=== PATIENT | male | born 1965 | race Caucasian/White ===

== ENCOUNTER → 2023-11-24 | Outpatient (CLI) | payer BC ==
[2023-11-24 12:00] LABS: Basophils # (A) 0.05 X 10*3/uL (0.00-0.10); Basophils % (A) 1.3 %; Eosinophils # (A) 0.16 X 10*3/uL (0.04-0.35); Eosinophils % (A) 4.3 %; HCT 45.6 % (39.6-50.0); HGB 15.7 g/dL (13.0-17.0); Lymphocytes # (A) 1.45 X 10*3/uL (0.90-5.00); Lymphocytes % (A) 38.6 %; MCH 30.1 pg (27.0-32.0); MCHC 34.4 g/dL (32.0-37.0); MCV 87.5 FL (80.0-97.0); Monocytes # (A) 0.44 X 10*3/uL (0.20-1.00); Monocytes % (A) 11.7 %; NRBC Per 100 WBC 0 X 10*3/uL (0.00-0.01); Neutrophils # (A) 1.65 X 10*3/uL (1.80-7.70); Neutrophils % (A) 43.8 %; Platelet Count 176 X 10*3/uL (140-440); RBC 5.21 X 10*6/uL (4.40-5.60); RDW 12.8 % (11.5-14.5); WBC 3.76 X 10*3/uL (4.50-10.00)
[2023-11-24 12:26] LABS: ALT 29 U/L (10-49); AST 20 U/L (14-35); Albumin 4.6 g/dL (3.8-4.9); Albumin/Globulin Ratio 2.09 Ratio (1.60-3.17); Alkaline Phosphatase 73 U/L (41-126); Blood Urea Nitrogen 12.6 mg/dL (9.0-27.0); Calcium 9.3 mg/dL (8.7-10.3); Carbon Dioxide 24.5 mmol/L (21.6-31.8); Chloride 101 mmol/L (96-109); Globulin 2.2 g/dL (1.6-3.3); Glucose 106 mg/dL (70-110); Potassium 3.9 mmol/L (3.5-5.5); Prostate Specific Antigen 3.38 ng/mL (0.000-3.500); Sodium 137 mmol/L (135-145); T4, Free (Free Thyroxine) 1.24 ng/dL (0.80-1.80); Total Bilirubin 0.5 mg/dL (0.3-1.2); Total Protein 6.8 g/dL (6.2-8.2); VLDL Calculation 19.22 mg/dL (5.00-40.00)
[2023-11-24 13:25] LABS: Appearance,Urine Clear (Clear); Bilirubin,Urine Negative (Negative); Blood,Urine Negative (Negative); Color,Urine Yellow (Yellow); Ketones,Urine Negative (Negative); Nitrite,Urine Negative (Negative); PH, Urine 6.5; Specific Gravity,Urine 1.006 (1.001-1.030); Urobilinogen,Urine 0.2 E.U./DL
== END | disposition home or self-care (01) ==
LOC: LABWHC1 07:50
PROVIDERS: ATTEND Physician Assistant
DX: Z12.5 Encounter for screening for malignant neoplasm of prostate (principal); I10 Essential (primary) hypertension; E78.5 Hyperlipidemia, unspecified
CPT/HCPCS: 36415; 80053; 80061; 81003; 82306; 84153; 84439; 84443; 85025

== ENCOUNTER 2023-12-09 07:12 | Inpatient (IN) | payer BC ==
[2023-12-09 07:23] LABS: Glucose,Whole Blood 145 mg/dL (70-110)
[2023-12-09 07:29] LABS: Basophils # (A) 0.1 k/uL (0-0.2); Basophils % (A) 1 %; Eosinophils # (A) 0.3 k/uL (0-0.7); Eosinophils % (A) 6 %; HCT 47.9 % (39.0-53.0); HGB 16.5 gm/dL (13.0-17.5); Lymphocytes # (A) 2.2 k/uL (1.0-4.8); Lymphocytes % (A) 41 %; MCH 30.6 pg (25.0-35.0); MCHC 34.4 g/dL (31.0-37.0); MCV 88.8 fL (80.0-100.0); Mean Platelet Volume 8.6; Monocytes # (A) 0.4 k/uL (0-1.0); Monocytes % (A) 7 %; Neutrophils # (A) 2.2 k/uL (1.3-7.7); Neutrophils % (A) 41 %; Platelet Count 206 k/uL (150-450); WBC 5.3 k/uL (3.8-10.6)
--- NOTE | 2023-12-09 07:58 | CT ---
EXAMINATION TYPE: CODE STROKE: CT brain wo contr DATE OF EXAM: 12/09/2023 COMPARISON: None INDICATION: CODE STROKE DLP: 1092 mGycm, Automated exposure control for dose reduction was used. CONTRAST: None CT of the brain is performed utilizing 3 mm thick sections through the posterior fossa and 3 mm thick sections through the remaining calvarium. Study is performed within 24 hours of arrival to the hosp ital. No abnormal hyperdensity is present to suggest an acute intracranial hemorrhage. No mass lesion is evident. No acute infarcts are evident. Ventricles and sulci are appropriate for the patient age. Paranasal sinuses and mastoid air cells within the [id number] are clear. IMPRESSION: 1. No acute intracranial process. Follow-up MRI can be performed as clinically indicated.
[2023-12-09 08:06] LABS: ALT 27 U/L (4-49); AST 23 U/L (17-59); African American GFR (CKD) >90 (>60 ml/min/1.73 sqM); Albumin 3.6 g/dL (3.5-5.0); Alkaline Phosphatase 59 U/L (38-126); Anion Gap 7 mmol/L; Blood Urea Nitrogen 16 mg/dL (9-20); Calcium 8.6 mg/dL (8.4-10.2); Carbon Dioxide 23 mmol/L (22-30); Chloride 106 mmol/L (98-107); Creatine Kinase 103 U/L (55-170); Glucose 144 mg/dL (74-99); Non-African American GFR(CKD) >90 (>60 ml/min/1.73 sqM); Partial Thromboplastin Time 22.9 sec (22.0-30.0); Potassium 3.8 mmol/L (3.5-5.1); Prothrombin Time 10.9 sec (10.0-12.5); Sodium 136 mmol/L (137-145); Total Bilirubin 0.5 mg/dL (0.2-1.3); Total Protein 5.9 g/dL (6.3-8.2)
--- NOTE | 2023-12-09 08:32 | XR ---
EXAMINATION TYPE: XR chest 2V DATE OF EXAM: 12/09/2023 COMPARISON: None HISTORY: 58-year-old male confusion, altered mental status TECHNIQUE: AP and lateral views FINDINGS: Hazy lung densities likely relating to AP technique, body habitus, and overlying soft tissue density. Heart normal size. Aorta and pulmonary vasculature within normal limits. No consolidation or pleural effusion. IMPRESSION: No definite acute cardiopulmonary process.
--- NOTE | 2023-12-09 08:48 | CT ---
EXAMINATION TYPE: CT angio head neck CT DLP: 2049 mGycm, Automated exposure control for dose reduction was used. DATE OF EXAM: 12/09/2023 8:21 AM COMPARISON: CT same day.. CLINICAL INDICATION:Male, 58 years old with history of Neuro deficit, acute, stroke suspected; PHH, C ODE STROKE TECHNIQUE: Axially acquired helical CT angiogram of the head and neck was obtained with contrast. Axi al images are supplemented with 3D reconstructions and MIP images which were post-processed at an in dependent workstation. NASCET criteria used. Contrast used:65 ml mL of Isovue 370 without and with IV Contrast, Oral contrast used: None. FINDINGS: CTA HEAD: No evidence of acute intracranial hemorrhage, mass effect, or midline shift. The ventricles, sulci, a nd cisterns are unremarkable. The visualized portions of the internal carotid arteries, middle cerebral arteries, anterior cerebral arteries, and posterior cerebral arteries are patent. The basilar and vertebral arteries are patent. CTA NECK: Right Carotid System: The common carotid artery and external carotid artery are patent. The carotid bifurcation demonstrate s no evidence of hemodynamically significant stenosis. The remaining portions of the internal carotid artery demonstrate normal size without significant narrowing. Left Carotid System: The common carotid artery and external carotid artery are patent. The carotid bifurcation demonstrate s no evidence of hemodynamically significant stenosis. The remaining portions of the internal carotid artery demonstrate normal size without significant narrowing. Vertebral arteries are patent without evidence hemodynamically significant stenosis. There is a 2-vessel aortic arch. The origins of the great vessels are patent. No evidence of hemodyna mically significant stenosis. IMPRESSION: 1. No evidence of dissection of the cervical internal carotid arteries or vertebral arteries or any e vidence of significant stenosis at the carotid bifurcations. 2. No evidence of intracranial high-grade stenosis or intracranial aneurysm.
--- NOTE | 2023-12-09 09:55 | ED ---
Neuro HPI - General Chief Complaint: Neuro Symptoms/Deficit Stated Complaint: Stroke Time Seen by Provider: 12/09/23 07:20 Source: patient Mode of arrival: EMS Limitations: no limitations - History of Present Illness Is the patient presenting with stroke symptoms?: Yes Initial Comments: 58-year-old male with past medical history of hypertension who presents emergency department reporting strokelike symptoms. Patient awoke at 530 and states that he was his normal self. He did take some of his morning vitamins and started drinking coffee. At 610 he had sudden onset of a popping sensation in his left neck. He then had ataxia and was falling to the side. noted that he started having some slurred speech and altered level of consciousness. EMS was called immediately. He does not take any blood thinners. No history of stroke. Denies visual changes. No facial droop. Denies any lateralizing weakness. No recent head injuries. Denies chiropractic manipulation of the neck. No other alleviating, precipitating or modifying factors - Related Data Home Medications: Home Medications Medication Instructions Recorded Confirmed Ascorbic Acid [Vitamin C] 1,000 mg PO DAILY 12/09/23 12/15/23 Aspirin EC [Ecotrin Low Dose] 81 mg PO DAILY 12/09/23 12/15/23 Cholecalciferol (Vitamin D3) 50 mcg PO DAILY 12/09/23 12/15/23 [Vitamin D3 (50 Mcg = 2000 Iu)] amLODIPine [Norvasc] 10 mg PO DAILY 12/09/23 12/15/23 Cetirizine HCl [Zyrtec] 10 mg PO HS 12/15/23 12/15/23 Melatonin 10 mg PO HS 12/15/23 12/15/23 Previous Rx's Medication Instructions Recorded Atorvastatin [Lipitor] 40 mg PO HS #30 tab 12/11/23 Ticagrelor [Brilinta] 90 mg PO BID #60 tab 12/11/23 Allergies/Adverse Reactions: Allergies Allergy/AdvReac Type Severity Reaction Status Date / Time No Known Allergies Allergy Verified 12/15/23 13:11 Review of Systems ROS Statement: Those systems with pertinent positive or pertinent negative responses have been documented in the HPI. ROS Other: All systems not noted in ROS Statement are negative. General Exam Limitations: no limitations General appearance: alert, in no apparent distress, other (Patient does have some slurred speech) Head exam: Present: atraumatic, normocephalic, normal inspection Eye exam: Present: normal appearance, PERRL, EOMI. Absent: scleral icterus, conjunctival injection, periorbital swelling ENT exam: Present: normal exam, mucous membranes moist Neck exam: Present: normal inspection. Absent: tenderness, meningismus, lymphadenopathy Respiratory exam: Present: normal lung sounds bilaterally. Absent: respiratory distress, wheezes, rales, rhonchi, stridor Cardiovascular Exam: Present: regular rate, normal rhythm, normal heart sounds. Absent: systolic murmur, diastolic murmur, rubs, gallop, clicks GI/Abdominal exam: Present: soft, normal bowel sounds. Absent: distended, tenderness, guarding, rebound, rigid Extremities exam: Present: normal inspection, full ROM, normal capillary refill. Absent: tenderness, pedal edema, joint swelling, calf tenderness Back exam: Present: normal inspection Neurological exam: Present: alert, oriented X3, CN II-XII intact, other (Patient does appear to have some slurred speech) Psychiatric exam: Present: normal affect, normal mood Skin exam: Present: warm, dry, intact, normal color. Absent: rash Stroke MDM - Lab Data Result diagrams: 12/09/23 07:21 12/09/23 07:46 Lab Results 12/09/23 12/09/23 12/09/23 Range/Units 07:21 07:21 07:21 WBC 5.3 (3.8-10.6) k/uL RBC 5.40 (4.30-5.90) m/uL Hgb 16.5 (13.0-17.5) gm/dL Hct 47.9 (39.0-53.0) % MCV 88.8 (80.0-100.0) fL MCH 30.6 (25.0-35.0) pg MCHC 34.4 (31.0-37.0) g/dL RDW 13.0 (11.5-15.5) % Plt Count 206 (150-450) k/uL MPV 8.6 Neutrophils % 41 % Lymphocytes % 41 % Monocytes % 7 % Eosinophils % 6 % Basophils % 1 % Neutrophils # 2.2 (1.3-7.7) k/uL Lymphocytes # 2.2 (1.0-4.8) k/uL Monocytes # 0.4 (0-1.0) k/uL Eosinophils # 0.3 (0-0.7) k/uL Basophils # 0.1 (0-0.2) k/uL PT (10.0-12.5) sec INR (<1.2) APTT (22.0-30.0) sec Sodium (137-145) mmol/L Potassium (3.5-5.1) mmol/L Chloride (98-107) mmol/L Carbon Dioxide (22-30) mmol/L Anion Gap mmol/L BUN (9-20) mg/dL Creatinine (0.66-1.25) mg/dL Est GFR (CKD-EPI)AfAm (>60 ml/min/1.73 sqM) Est GFR (CKD-EPI)NonAf (>60 ml/min/1.73 sqM) Glucose (74-99) mg/dL POC Glucose (mg/dL) 145 H (70-110) mg/dL POC Glu Bean Weigher ID [address] Glu mg/dL 120 mg/dL Hemoglobin A1c 5.8 (<=6.0) % Calcium (8.4-10.2) mg/dL Total Bilirubin (0.2-1.3) mg/dL AST (17-59) U/L ALT (4-49) U/L Alkaline Phosphatase (38-126) U/L Creatine Kinase (55-170) U/L Troponin I (0.000-0.034) ng/mL Total Protein (6.3-8.2) g/dL Albumin (3.5-5.0) g/dL 12/09/23 12/09/23 12/09/23 Range/Units 07:46 07:46 07:46 WBC (3.8-10.6) k/uL RBC (4.30-5.90) m/uL Hgb (13.0-17.5) gm/dL Hct (39.0-53.0) % MCV (80.0-100.0) fL MCH (25.0-35.0) pg MCHC (31.0-37.0) g/dL RDW (11.5-15.5) % Plt Count (150-450) k/uL MPV Neutrophils % % Lymphocytes % % Monocytes % % Eosinophils % % Basophils % % Neutrophils # (1.3-7.7) k/uL Lymphocytes # (1.0-4.8) k/uL Monocytes # (0-1.0) k/uL Eosinophils # (0-0.7) k/uL Basophils # (0-0.2) k/uL PT 10.9 (10.0-12.5) sec INR 1.0 (<1.2) APTT 22.9 (22.0-30.0) sec Sodium 136 L (137-145) mmol/L Potassium 3.8 (3.5-5.1) mmol/L Chloride 106 (98-107) mmol/L Carbon Dioxide 23 (22-30) mmol/L Anion Gap 7 mmol/L BUN 16 (9-20) mg/dL Creatinine 0.76 (0.66-1.25) mg/dL Est GFR (CKD-EPI)AfAm >90 (>60 ml/min/1.73 sqM) Est GFR (CKD-EPI)NonAf >90 (>60 ml/min/1.73 sqM) Glucose 144 H (74-99) mg/dL POC Glucose (mg/dL) (70-110) mg/dL POC Glu Bean Weigher ID Estimated Ave Glu mg/dL mg/dL Hemoglobin A1c (<=6.0) % Calcium 8.6 (8.4-10.2) mg/dL Total Bilirubin 0.5 (0.2-1.3) mg/dL AST 23 (17-59) U/L ALT 27 (4-49) U/L Alkaline Phosphatase 59 (38-126) U/L Creatine Kinase 103 (55-170) U/L Troponin I <0.012 (0.000-0.034) ng/mL Total Protein 5.9 L (6.3-8.2) g/dL Albumin 3.6 (3.5-5.0) g/dL - Medical Decision Making Was pt. sent in by a medical professional or institution (, PA, COAT JOINER, urgent care, hospital, or halfway...) When possible be specific @ -No Did you speak to anyone other than the patient for history (EMS, parent, family, police, friend...)? What history was obtained from this source @ -Spoke with EMS for history Did you review nursing and triage notes (agree or disagree)? Why? @ -I reviewed and agree with nursing and triage notes Were old charts reviewed (outside hosp., previous admission, EMS record, old EKG, old radiological studies, urgent care reports/EKG's, halfway records)? Report findings @ -No old charts were reviewed Differential Diagnosis (chest pain, altered mental status, abdominal pain women, abdominal pain men, vaginal bleeding, weakness, fever, dyspnea, syncope, headache, dizziness, GI bleed, back pain, seizure, CVA, palpatations, mental health, musculoskeletal)? @ -Differential CVA Ischemic stroke, hemorrhagic stroke, brain tumor, atypical migraine, Wernicke's encephalopathy, seizure, multiple sclerosis, meningitis, encephalitis, hypoglyc emia, Guillain-Resendiz, electrolytes disturbance, myasthenia gravis.... This is not meant to be an all-inclusive list EKG interpreted by me (3pts min.). @ -Yes and demonstrates sinus bradycardia with a rate of 49. Parable 195. QRS 101. QTc of 419. No acute ST segment elevations depressions X-rays interpreted by me (1pt min.). @ -Yes and demonstrates no acute process CT interpreted by me (1pt min.). @ -Original CT was evaluated by myself pending radiology over read. CT appears negative which was agreed upon by the radiologist U/S interpreted by me (1pt. min.). @ -None done What testing was considered but not performed or refused? (CT, X-rays, U/S, labs)? Why? @ -None What meds were considered but not given or refused? Why? @ -None Did you discuss the management of the patient with other professionals (professionals i.e. , PA, COAT JOINER, lab, RT, psych nurse, social science research assistant, tax map technician, te acher, campus police officer, high risk case manager)? Give summary @ -Spoke with on-call neurointensivist. Also spoke with Dr. Almendarez in regards to the patient's symptoms.. Also spoke with admitting doctor Was smoking cessation discussed for >3mins.? @ -No Was critical care preformed (if so, how long)? @ -Yes, 40 minutes for code stroke activation Were there social determinants of health that impacted care today? How? (Homelessness, low income, unemployed, alcoholism, drug addiction, transportation, low edu. Level, literacy, decrease access to med. care, senior living, rehab)? @ -No Was there de-escalation of care discussed even if they declined (Discuss DNR or withdrawal of care, Hospice)? DNR status @ -No What co-morbidities impacted this encounter? (DM, HTN, Smoking, COPD, CAD, Cancer, CVA, ARF, Chemo, Hep., AIDS, mental health diagnosis, sleep apnea, morbid obesity)? @ -None Was patient admitted / discharged? Hospital course, mention meds given and route, prescriptions, significant lab abnormalities, going to OR and other pertinent info. @ -Upon arrival patient was seen and evaluated in room 3. Thorough history and physical exam was performed. NIH was assessed. Patient does go for CT of his brain as well as CT angiography. Chest x-ray was performed. I did discuss the results with the neurointensivist. No acute findings at this time and therefore patient will be given aspirin. He will be admitted for further neurologic workup. Patient was agreeable to this he was admitted to the floor in stable condition Undiagnosed new problem with uncertain prognosis? @ -Yes Drug Therapy requiring intensive monitoring for toxicity (Heparin, Nitro, Insulin, Cardizem)? @ -No Were any procedures done? @ -No Diagnosis/symptom? @ -Acute dysarthria, acute vertigo, suspected CVA Acute, or Chronic, or Acute on Chronic? @ -Acute Uncomplicated (without systemic symptoms) or Complicated (systemic symptoms)? @ -Complicated Side effects of treatment? @ -No Exacerbation, Progression, or Severe Exacerbation? @ -No Poses a threat to life or bodily function? How? (Chest pain, USA, MD, pneumonia, PE, COPD, DKA, ARF, appy, cholecystitis, CVA, Diverticulitis, Homicidal, Suicidal, threat to staff... and all critical care pts) @ -Yes as patient presents with symptoms concerning for stroke Past Medical History Past Medical History: Hyperlipidemia, Hypertension History of Any Multi-Drug Resistant Organisms: None Reported Additional Past Surgical History / Comment(s): sprial fracture to left femur, Past Psychological History: No Psychological Hx Reported Smoking Status: Never smoker Past Alcohol Use History: Occasional Past Drug Use History: None Reported - Past Family History Father Family Medical History: Dementia Mother History Unknown: Yes Course Vital Signs 04/12/09/23 12/09/23 07:14 07:30 07:45 Temperature 98.0 F Pulse Rate 57 L 54 L 49 L Respiratory 18 18 18 Rate Blood Pressure 210/115 165/83 175/85 O2 Sat by Pulse 98 98 98 Oximetry 12/09/23 12/09/23 12/09/23 08:00 08:15 08:30 Temperature Pulse Rate 50 L 52 L 50 L Respiratory 18 18 18 Rate Blood Pressure 173/94 170/84 170/93 O2 Sat by Pulse 96 98 98 Oximetry 12/09/23 12/09/23 12/09/23 08:45 09:00 09:30 Temperature Pulse Rate 51 L 45 L 45 L Respiratory 18 18 18 Rate Blood Pressure 169/70 170/96 169/99 O2 Sat by Pulse 97 95 94 L Oximetry 12/09/23 12/09/23 12/09/23 10:00 10:21 11:00 Temperature Pulse Rate 52 L 53 L 50 L Respiratory 18 18 18 Rate Blood Pressure 164/94 178/91 O2 Sat by Pulse 95 94 L 96 Oximetry 12/09/23 12/09/23 12/09/23 11:30 11:46 12:00 Temperature Pulse Rate 50 L 49 L 80 Respiratory 18 18 18 Rate Blood Pressure 180/92 177/90 170/87 O2 Sat by Pulse 94 L 95 94 L Oximetry 12/09/23 12/09/23 12/09/23 12:30 13:00 14:00 Temperature Pulse Rate 53 L 54 L 51 L Respiratory 18 18 16 Rate Blood Pressure 176/89 176/89 O2 Sat by Pulse 93 L 93 L 95 Oximetry 12/09/23 12/09/23 12/09/23 14:03 15:03 15:47 Temperature Pulse Rate 59 L 54 L 55 L Respiratory 18 18 18 Rate Blood Pressure 156/93 160/86 O2 Sat by Pulse 95 98 96 Oximetry 12/09/23 12/09/23 12/09/23 16:01 17:18 18:03 Temperature Pulse Rate 56 L 68 54 L Respiratory 18 18 18 Rate Blood Pressure 167/74 142/82 O2 Sat by Pulse 96 94 L 98 Oximetry 12/09/23 12/10/23 12/10/23 22:22 02:09 06:24 Temperature Pulse Rate 79 58 L 58 L Respiratory 16 16 16 Rate Blood Pressure 137/68 110/78 116/65 O2 Sat by Pulse 96 98 97 Oximetry 12/10/23 12/10/23 12/10/23 07:42 09:22 09:45 Temperature 97.4 F L Pulse Rate 66 75 Respiratory 18 18 Rate Blood Pressure 143/91 140/86 O2 Sat by Pulse 94 L 95 96 Oximetry Disposition Clinical Impression: Cerebrovascular accident (CVA), Dysarthria, Bradycardia Disposition: ADMITTED IP TO THIS [facility] Condition: Good Is patient prescribed a controlled substance at d/c from ED?: No Time of Disposition: 09:54 Decision to Admit Reason: Admit from EC Decision Date: 12/09/23 Decision Time: 09:55
[2023-12-09] MEDS: ATORVASTATIN 40 MG TAB PO SCH (10:20)
[2023-12-09] MEDS: MECLIZINE 12.5 MG TAB PO STA (10:20)
--- NOTE | 2023-12-09 11:15 | P.HPIM ---
History of Present Illness H&P Date: 12/09/23 History of Presenting Illness: Patient is a very pleasant 58-year-old male with a past medical history of hypertension and hyperlipidemia. He presented to the emergency department with reports of slurred speech, dizziness, and unsteady gait. Patient and patient's at bedside report patient awoke around 5:30 AM this morning at his baseline mentation. Around 6:10 AM he felt a sudden pop in his left ear accompanied by significant dizziness/lightheadedness. Patient reports calling for his and she states she assisted him to go lie down but states he kept falling and leaning towards the left. She reports once she assisted him to lie down he began having slurred speech and seemed quite off so she called EMS. Patient denies having headache, changes in vision or hearing, chest pain or palpitations, shortness of breath, or experiencing any focal weakness in his extremities. Patient does report feeling some numbness/tingling in his right shoulder, persistent slurred speech and dizziness but also states since arrival to the hospital he noticed he had some difficulty swallowing the aspirin he was given. He underwent evaluation in the emergency department and a stroke code was activated. Vital signs upon arrival show blood pressure 210/115, heart rate 57, respiratory rate 18, temp 98.0 F, and SpO2 of 98% on room air. Blood glucose was 145. EKG was completed showing sinus bradycardia at 49 bpm with no significant T wave or ST abnormalities showing no signs of acute ischemia. CT head was negative for acute intracranial process. CTA head and neck showing no evidence of dissection of the cervical internal carotid arteries or vertebral arteries or any evidence of stenosis at the carotid bifurcations. Initial NIH score was 1 for dysarthria and ataxia.. Emergency physician discussed with neuro interventionalist and patient was considered not a candidate for tPA due to low NIH score. Labs were completed and reviewed. CBC, coagulation profile and CMP were unremarkable. Troponin was less than 0.012. Patient was admitted under our services with consultation to neurology. Review of systems: Pertinent positives and negatives as discussed in HPI, a complete review of systems was performed and all other systems are negative. Physical exam: Vital signs reviewed and stable. General: Nontoxic, no distress and appears stated age. Derm: Skin warm and dry, normal coloration for ethnicity. Head: Atraumatic, normocephalic and symmetric. Eyes: EOMs intact, no lid lag, and anicteric sclera Mouth: no lip lesions, mucus membranes moist Cardiovascular: regular rate and rhythm with normal S1S2, systolic murmur, positive posterior tibial pulses bilaterally, and cap refill < 2 seconds. Lungs: Respirations even, regular, and unlabored on room air. Lungs CTA bilaterally, no rhonchi, no rales, no wheezing, and no accessory muscle usage. Abdominal: soft, nontender to palpation, no guarding, no appreciable organomegaly Ext: No gross muscle atrophy, no edema, no contractures. Station intact and movement equal, strong, and symmetrical in bilateral upper and lower extremities. Neuro: Speech slightly slurred, face symmetrical and CN II-XII grossly intact with no noted focal neuro deficits. Normal [id number]. No arm drop. Normal [id number]. Psych: Alert and oriented to person, place, time, and situation. Appropriate and pleasant affect. Assessment and Plan of Care: Concerns of acute ischemic stroke Neurological deficits including dysphagia, aphasia, and ataxia accompanied by persistent dizziness Hypertension Hyperlipidemia -Consult neurology, appreciate recommendations -Order placed for MRI brain without contrast -Order placed for echocardiogram -TSH, Lipid profile, and Hgb A1c -NIH stroke scale with neuro checks every 4 hours and as needed -Continue daily aspirin and atorvastatin. -Resume amlodipine 10 mg daily tomorrow a.m, as we will allow for permissive hypertension over next 24 hours. -PT/OT consult -Speech and language pathologist consulted for swallow evaluation. -Fall precautions and provide pt with assistance as needed Data and imaging reviewed: As stated above in HPI The patient is admitted with an anticipated greater than 2 midnight stay for evaluation of acute ischemic CVA CODE STATUS: Full code DVT prophylaxis: SCDs Discussed with: Patient, patient's , and ED physician. Anticipated discharge date: Likely 2 to [address]: Home Patient was seen independently by Nurse Practitioner. This document was prepared using [employer] dictation software. Please allow for errors in national van truck driver while rare they do occur. Vlad Alfonso NP rendered care for this patient independently, reviewed the f indings and plan as documented in the note above. I did not physically speak with or examine the patient on this date. Past Medical History Past Medical History: Hyperlipidemia, Hypertension History of Any Multi-Drug Resistant Organisms: None Reported Additional Past Surgical History / Comment(s): sprial fracture to left femur, Past Psychological History: No Psychological Hx Reported Smoking Status: Never smoker Past Alcohol Use History: Occasional Past Drug Use History: None Reported Medications and Allergies Home Medications Medication Instructions Recorded Confirmed Type Arginine Oxoglurate [l-Arginine] 350 mg PO DAILY 12/09/23 12/09/23 History Ascorbic Acid [Vitamin C] 1,000 mg PO DAILY 12/09/23 12/09/23 History Aspirin EC [Ecotrin Low Dose] 81 mg PO DAILY 12/09/23 12/09/23 History Atorvastatin [Lipitor] 20 mg PO MOWEFR@2100 12/09/23 12/09/23 History Cholecalciferol (Vitamin D3) 50 mcg PO DAILY 12/09/23 12/09/23 History [Vitamin D3 (50 Mcg = 2000 Iu)] Red Yeast Rice 600 mg PO DAILY 12/09/23 12/09/23 History Turmeric Root Extract [Turmeric] 500 mg PO DAILY 12/09/23 12/09/23 History amLODIPine [Norvasc] 10 mg PO DAILY@1200 12/09/23 12/09/23 History Allergies Allergy/AdvReac Type Severity Reaction Status Date / Time No Known Allergies Allergy Verified 12/09/23 09:52 Physical Exam Vitals: Vital Signs Temp Pulse Resp BP Pulse Ox 12/09/23 10:21 53 L 18 178/91 94 L 12/09/23 10:00 52 L 18 164/94 95 12/09/23 09:30 45 L 18 169/99 94 L 12/09/23 09:00 45 L 18 170/96 95 12/09/23 08:45 51 L 18 169/70 97 12/09/23 08:30 50 L 18 170/93 98 12/09/23 08:15 52 L 18 170/84 98 12/09/23 08:00 50 L 18 173/94 96 12/09/23 07:45 49 L 18 175/85 98 12/09/23 07:30 54 L 18 165/83 98 12/09/23 07:14 98.0 F 57 L 18 210/115 98 Intake and Output 12/08/23 12/09/23 12/09/23 22:59 06:59 14:59 Other: Weight 102.784 kg Results CBC & Chem 7: 12/09/23 07:21 12/09/23 07:46 Labs: Abnormal Lab Results - Last 24 Hours (Table) 12/09/23 12/09/23 Range/Units 07:21 07:46 Sodium 136 L (137-145) mmol/L Glucose 144 H (74-99) mg/dL POC Glucose (mg/dL) 145 H (70-110) mg/dL Total Protein 5.9 L (6.3-8.2) g/dL
[2023-12-09] MEDS: TICAGRELOR 90 MG TAB PO STA (15:00)
[2023-12-09] MEDS: ASPIRIN 81 MG PO STA (15:00)
[2023-12-09] MEDS: PROCHLORPERAZINE INJ 10 MG/2 ML VIAL IVP PRN (15:54)
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
--- NOTE | 2023-12-09 16:51 | CA ---
Transthoracic Echo Report Name: William Laguerre Age: 58 Gender: M : 1965 Exam Date: 12/09/2023 14:35 Exam Location: [facility] Ht (in): 72 Wt (lb): 226 Ordering Physician: Vlad Alfonso Attending/Referring Phys: Silk Examiner Felicita Crowder RDCS Procedure CPT: Indications: CVA workup Cardiac Hx: Technical Quality: Fair Contrast 1: Total Dose (mL): Contrast 2: Total Dose (mL): MEASUREMENTS (Male / Female) Normal Values 2D ECHO LV Diastolic Diameter PLAX 4.3 cm 4.2 - 5.9 / 3.9 - 5.3 cm LV Systolic Diameter PLAX 2.8 cm IVS Diastolic Thickness 1.4 cm 0.6 - 1.0 / 0.6 - 0.9 cm LVPW Diastolic Thickness 1.3 cm 0.6 - 1.0 / 0.6 - 0.9 cm LV Relative Wall Thickness 0.6 RV Internal Dim ED PLAX 3.5 cm LA Systolic Diameter LX 3.3 cm 3.0 - 4.0 / 2.7 - 3.8 cm LV Diastolic Volume MOD 4C 150.0 cm??? LV Systolic Volume MOD 4C 57.1 cm??? LV Ejection Fraction MOD 4C 61.9 % LV Cardiac Index MOD 4C 2013.9 cm???/min???m??? LV Diastolic Length 4C 9.8 cm LV Systolic Length 4C 7.7 cm LV Diastolic Volume MOD 2C 101.2 cm??? LV Systolic Volume MOD 2C 43.9 cm??? LV Ejection Fraction MOD 2C 56.6 % LV Cardiac Index MOD 2C 1241.8 cm???/min???m??? LV Diastolic Length 2C 9.3 cm LV Systolic Length 2C 7.3 cm LA Volume 64.4 cm??? 18 - 58 / 22 - 52 cm??? LA Volume Index 27.9 cm???/m??? 16 - 28 cm???/m??? M-MODE Aortic Root Diameter MM 4.1 cm MV E Point Septal Separation 0.3 cm AV Cusp Separation MM 2.7 cm DOPPLER AV Peak Velocity 206.9 cm/s AV Peak Gradient 17.1 mmHg AI Peak Velocity 356.6 cm/s AI Peak Gradient 50.9 mmHg AI Pressure Half Time 1052.6 ms LVOT Peak Velocity 177.2 cm/s LVOT Peak Gradient 12.6 mmHg MV Area PHT 3.0 cm??? Mitral E Point Velocity 86.5 cm/s Mitral A Point Velocity 94.0 cm/s Mitral E to A Ratio 0.9 MV Deceleration Time 249.4 ms TR Peak Velocity 272.4 cm/s TR Peak Gradient 29.7 mmHg Right Ventricular Systolic Press 34.7 mmHg FINDINGS Left Ventricle Left ventricular ejection fraction is estimated at 55-60 %. Left ventricular cavity size normal. Moderately increased septal wall thickness. No obvious regional wall motion abnormalities. Right Ventricle Mild right ventricular dilatation. Mild pulmonary hypertension. Right Atrium Normal right atrial size. Left Atrium Mildly increased left atrial volume. Mildly increased left atrial area. Mitral Valve Structurally normal mitral valve. No mitral stenosis, regurgitation or prolapse. Aortic Valve Trileaflet aortic valve. Trace aortic regurgitation. Tricuspid Valve Structurally normal tricuspid valve. Mild tricuspid regurgitation. Pulmonic Valve Structurally normal pulmonic valve. Trace pulmonic regurgitation. Pericardium No pericardial effusion. Aorta Mild aortic dilatation at the level of the sinuses of valsalva 40 mm CONCLUSIONS Normal LV function Mildly dilated aortic root Mild pulmonary hypertension Consider transesophageal echo if clinically indicated to rule out cardiac source for thromboembolic phenomenon Previewed by: Dr. Frankie Palencia MD (Electronically Signed) Final Date: 09 December 2023 16:50
--- NOTE | 2023-12-09 17:02 | MR ---
EXAMINATION TYPE: MR brain wo con DATE OF EXAM: 12/09/2023 COMPARISON: CT 12/09/2023 HISTORY: CVA CONTRAST: Performed utilizing 0 mL intravenous Gadavist gadolinium contrast. TECHNIQUE: Multiplanar, multiecho imaging on a 3.0 Jolie magnet is performed through the brain. Stud y is performed within 24 hours of arrival to the hospital. The craniovertebral junction is normal. The pituitary is normal. Diffusion-weighted imaging is performed. No abnormal hyperintensity is present to suggest an acute i ntracranial infarct or acute ischemic change. Signal within the brain appears normal. Ventricles and sulci are appropriate for the patient age. No hydrocephalus is evident. No temporal ho rn dilatation is evident. Note is made of fluid surrounding the optic nerves. No suspicious changes for acute intracranial incr eased pressure. Recommend physical evaluation for papilledema. IMPRESSION: 1. There appears to be some fluid surrounding the optic nerves bilaterally. Finding has been associat ed with papilledema. Clinical correlation recommended with physical exam.
--- NOTE | 2023-12-09 17:42 | MR ---
EXAMINATION TYPE: MR angio head wo/neck wo/w con DATE OF EXAM: 12/09/2023 COMPARISON: CTA 12/09/2023 HISTORY: Possible left vertebral artery dissection CONTRAST: None TECHNIQUE: Multiplanar multiecho imaging on a 3.0 Jolie magnet is performed through the [place] [facility]. 3-D orur-xk-gxqqga imaging is performed. Source images are reviewed on the computer in the axi al plane. Reconstructed images rotating on the computer are reviewed. FINDINGS: The internal carotid arteries bifurcate normally into A1 and M1 segments. The A2 segments are normal. Middle cerebral artery branches are normal. Anterior communicating artery is patent. The right posterior communicating artery is patent. The left posterior communicating artery is patent. Vertebrobasilar arteries within the truuj-kn-vaxi are normal. Near their origins the right vertebral artery is slightly larger caliber than the left vertebral artery. The caliber of the left vertebral a rtery as it enters the skull base is smaller than the right. There may be a section of vertebral rolando ry not visualized left. Some retrograde flow cannot be excluded basilar artery. Reports: Case discuss ed with the neurologist Dr. Almendarez by Dr. Adams by telephone at time of interpretation 1734 hours . Posterior Cerebral vasculature is normal. No suspicious aneurysm or aneurysmal dilatation is evident . No obstructions are identified. No significant flow-limiting stenosis is evident. IMPRESSION: 1. Portion of the left vertebral artery from the foramen magnum to the basilar artery is incompletely visualized. Thrombus is not excluded. Discrete dissection not identified.
[2023-12-09] MEDS: TICAGRELOR 90 MG TAB PO SCH (20:54)
[2023-12-10] MEDS: ASCORBIC ACID 500 MG TAB PO SCH (08:18)
[2023-12-10] MEDS: ASPIRIN 81 MG PO SCH (08:18)
[2023-12-10] MEDS: CHOLECALCIFEROL 25 MCG (1000 IU) TABLET PO SCH (08:19)
[2023-12-10] MEDS ORDERED: ASPIRIN 325 MG TAB PO SCH (09:00)
--- NOTE | 2023-12-10 14:59 | P.PN ---
Subjective Progress Note Date: 12/10/23 Hospital Course: Patient is a very pleasant 58-year-old male with a past medical history of hypertension and hyperlipidemia. He presented to the emergency department with reports of slurred speech, dizziness, and unsteady gait. Patient and patient's at bedside report patient awoke around 5:30 AM this morning at his baseline mentation. Around 6:10 AM he felt a sudden pop in his left ear accompanied by significant dizziness/lightheadedness. Patient reports calling for his and she states she assisted him to go lie down but states he kept falling and leaning towards the left. She reports once she assisted him to lie down he began having slurred speech and seemed quite off so she called EMS. Patient denies having headache, changes in vision or hearing, chest pain or palpitations, shortness of breath, or experiencing any focal weakness in his extremities. Patient does report feeling some numbness/tingling in his right shoulder, persistent slurred speech and dizziness but also states since arrival to the hospital he noticed he had some difficulty swallowing the aspirin he was given. He underwent evaluation in the emergency department and a stroke code was activated. Vital signs upon arrival show blood pressure 210/115, heart rate 57, respiratory rate 18, temp 98.0 F, and SpO2 of 98% on room air. Blood glucose was 145. EKG was completed showing sinus bradycardia at 49 bpm with no significant T wave or ST abnormalities showing no signs of acute ischemia. CT head was negative for acute intracranial process. CTA head and neck showing no evidence of dissection of the cervical internal carotid arteries or vertebral arteries or any evidence of stenosis at the carotid bifurcations. Initial NIH score was 1 for dysarthria and ataxia.. Emergency physician discussed with neuro interventionalist and patient was considered not a candidate for tPA due to low NIH score. Labs were completed and reviewed. CBC, coagulation profile and CMP were unremarkable. Troponin was less than 0.012. Patient was admitted under our services with consultation to neurology. MRI brain without contrast reporting some fluid surrounding the optic nerves bilaterally appears to be associated with palpable edema. MRA head and neck showing portion of the left vertebral artery from the faustin magnum to the basilar artery is incompletely visualized, concerning for thrombus however discrete dissection was not identified. Discussed these findings with neurologist, patient was started on Brilinta in addition to daily aspirin. Echocardiogram revealing a preserved EF of 55 to 60% with a mildly dilated aortic root and mild pulmonary hypertension. Physical exam: Patient seen and fully evaluated at bedside this morning. He has had full resolution of previous reported symptoms including dizziness, dysphagia, aphasia, and right shoulder/arm numbness and tingling. He continues to deny having any headache, changes in vision or hearing, chest pain, palpitations, or any other complaints at this time. Patient and patient's at bedside were updated on MRI results and current plan of care. Vital signs reviewed and stable. General: Nontoxic, no distress and appears stated age. Derm: Skin warm and dry, normal coloration for ethnicity. Head: Atraumatic, normocephalic and symmetric. Eyes: EOMs intact, no lid lag, and anicteric sclera Mouth: no lip lesions, mucus membranes moist Cardiovascular: regular rate and rhythm with normal S1S2, systolic murmur, positive posterior tibial pulses bilaterally, and cap refill < 2 seconds. Lungs: Respirations even, regular, and unlabored on room air. Lungs CTA bilaterally, no rhonchi, no rales, no wheezing, and no accessory muscle usage. Abdominal: soft, nontender to palpation, no guarding, no appreciable organomegaly Ext: No gross muscle atrophy, no edema, no contractures. Station intact and movement equal, strong, and symmetrical in bilateral upper and lower extremities. Neuro: Speech clear, face symmetrical and CN II-XII grossly intact with no noted focal neuro deficits. Normal ipfm-mc-psbj. No arm drop. Normal gkzmis-ge-syaw. Psych: Alert and oriented to person, place, time, and situation. Appropriate and pleasant affect. Assessment and Plan of Care: Acute ischemic stroke Neurological deficits including dysphagia, aphasia, and ataxia accompanied by persistent dizziness Hypertension Hyperlipidemia -Consult neurology, appreciate recommendations -MRI brain without contrast reporting some fluid surrounding the optic nerves bilaterally appears to be associated with palpable edema. -MRA head and neck showing portion of the left vertebral artery from the faustin magnum to the basilar artery is incompletely visualized, concerning for thrombus however discrete dissection was not identified. -Echocardiogram revealing a preserved EF of 55 to 60% with a mildly dilated aortic root and mild pulmonary hypertension -TSH, Lipid profile, and Hgb A1c -NIH stroke scale with neuro checks every 4 hours and as needed -Continue daily aspirin and atorvastatin. -Resume amlodipine 10 mg daily, as this was held yesterday allowing for permissive hypertension for initial 24 hours. -PT/OT consult -Speech and language pathologist consulted for swallow evaluation. -Fall precautions and provide pt with assistance as needed Data and imaging reviewed: -MRI brain without contrast reporting some fluid surrounding the optic nerves bilaterally appears to be associated with palpable edema. -MRA head and neck showing portion of the left vertebral artery from the faustin magnum to the basilar artery is incompletely visualized, concerning for thrombus however discrete dissection was not identified. -Echocardiogram revealing a preserved EF of 55 to 60% with a mildly dilated aortic root and mild pulmonary hypertension -Vital signs reviewed. Blood pressure 143/91, heart rate 66, respiratory rate 18, and SpO2 of 94% on room air. CODE STATUS: Full code DVT prophylaxis: SCDs Anticipated discharge date: Clinical course to determine Anticipated discharge place: Home Patient was seen independently by Nurse Practitioner. This document was prepared using [employer] dictation software. Please allow for e rrors in site manager while rare they do occur. I reviewed the documentation as provided by the BRIDGET above, who is the original author of this note. I agree with the documented assessment and plan, with the following changes: none Objective - Vital Signs Vital signs: Vital Signs Temp 98.0 F 12/09/23 07:14 Pulse 66 12/10/23 07:42 Resp 18 12/10/23 07:42 BP 143/91 12/10/23 07:42 Pulse Ox 94 L 12/10/23 07:42 FiO2 Intake & Output 12/09/23 12/10/23 12/10/23 18:59 06:59 18:59 Weight 102.784 kg - Labs CBC & Chem 7: 12/09/23 07:21 12/09/23 07:46 Labs: Abnormal Lab Results - Last 24 Hours (Table) 12/09/23 Range/Units 07:46 Sodium 136 L (137-145) mmol/L Glucose 144 H (74-99) mg/dL Total Protein 5.9 L (6.3-8.2) g/dL
[2023-12-10 16:02] LABS: LDL Cholesterol,Calculated 136.1 mg/dL (0.0-131.0); VLDL Calculation 18.94 mg/dL (5.00-40.00)
[2023-12-10] MEDS: amLODIPine 10 MG TAB PO SCH ×2 (16:32→20:11)
--- NOTE | 2023-12-10 16:43 | P.PN ---
Subjective Progress Note Date: 12/10/23 Patient was seen for a follow-up. Patient's was also present. Patient has no headache. He is walking well, walked around the hallway. Denies any numbness or tingling, difficulty swallowing or speaking or balance issues. All symptoms have resolved. Patient states that since he returned back from MRI, he has not had any further focal symptoms or TIA. Objective - Vital Signs Vital signs: Vital Signs Temp 98.0 F 12/10/23 10:20 Pulse 53 L 12/10/23 14:00 Resp 16 12/10/23 12:00 BP 151/81 12/10/23 12:00 Pulse Ox 95 12/10/23 12:00 FiO2 Intake & Output 12/09/23 12/10/23 12/10/23 18:59 06:59 18:59 Intake Total 360 Balance 360 Weight 102.784 kg 102.784 kg Intake: Oral 360 Other: # Voids 1 - Exam Patient is a middle aged male, in no acute distress. Patient is alert awake oriented to time place and person. Speech and language functions are normal. Patient can name and repeat very well. No aphasia or dysarthria. Attention, concentration and fund of knowledge is adequate. On cranial nerve examination, pupils are equal, round and reacting to light, visual hall are full on confrontation, with no neglect on double simultaneous stimulation. Extraocular muscles are intact with no nystagmus. Face is symme tric, tongue protrudes to the midline. Palatal elevation and sensation normal, hearing and shoulder shrug normal, facial sensation normal. On muscle strength testing, there is no pronator drift and the strength is normal in arms and legs distally and proximally. Sensory to touch is equal with no neglect on double simultaneous stimulation. Cerebellar function showed no ataxia for [id number] testing. No dysdiadochokinesia. No ataxia for [id number] testing on either side. Tone and bulk of muscles normal. Gait deferred.. On general examination, there is no carotid bruit or murmur, S1-S2 audible. Chest is clear on consultation. Abdomen is soft nontender. No organomegaly, bowel sounds present. Peripheral pulses are present. No peripheral edema. - Labs CBC & Chem 7: 12/09/23 07:21 12/09/23 07:46 Assessment and Plan Assessment: * Recurrent TIA, probably in the left PICA distribution. 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 Patient probably had recurrent TIA. Current NIH stroke scale is 0. MRI of the brain reported as appears to be some fluid surrounding the optic nerves bilaterally. Findings has been associated with papilledema. Clinical correlation recommended with physical exam. I personally reviewed MRI, and there is no evidence of any acute stroke. The brainstem and the medulla appears clear. MRA of the head and neck revealed portion of the left vertebral artery from the foramen magnum to the basilar artery is incompletely visualized. Thrombus is not excluded. Discrete dissection not identified. 2-D echo revealed left ventricular EF 55 to 60%. Moderately increased septal wall thickness. No obvious regional wall motion abnormalities. Mildly increased left atrial volume. Mild aortic dilation at the level of the sinuses. No obvious valvular abnormalities. CTA of head and neck showed no evidence of dissection of the cervical internal carotid arteries or vertebral arteries or any evidence of significant stenosis at the carotid bifurcations. No evidence of intracranial high-grade stenosis or intracranial aneurysm. On my review there is evidence of possible left vertebral artery occlusion at the skull base. I had reviewed with the radiologist, who agreed and put an addendum. Fasting a.m. lipid panel with cholesterol 198, LDL 136, HDL 43, triglycerides 94. Patient was taking Lipitor 20 mg 3 times a week. Agree with increasing Lipitor to 40 mg daily. If he cannot tolerate Lipitor, then he can follow-up with primary physician to try alternate medication. Hemoglobin A1c 5.8. Patient has been free of TIA for last 24-hour. May start gradually controlling blood pressure with low-dose amlodipine. Patient was taking aspirin 81 mg daily at home. Brilinta has been started. Recommend continue aspirin 81 mg and Brilinta 90 mg twice daily for 30 days. If remains stable, then may move to aspirin and Plavix. Neuro checks every 2 hour. Telemetry monitoring rule out any arrhythmia PT, OT, speech therapy DVT prophylaxis: Patient ambulatory. Recommend follow-up with neurologist outpatient in 2 to 3 weeks. Because the patient's symptoms have resolved, he has reset the clock for thrombolysis. If he gets any further significant neurological deficits that persist, he could be a potential candidate for TNK. Informed the patient's nurse, as well as primary team. Continue neurochecks every 1 hour.
[2023-12-11 08:29] VITALS: BP 160/94; PULSE 67; RESP 17; TEMP 97.8
[2023-12-11] MEDS: ACETAMINOPHEN TAB 325 MG TAB PO PRN (09:48)
--- NOTE | 2023-12-11 10:14 | P.DS ---
Providers Date of admission: 12/09/23 09:57 Expected date of discharge: 12/11/23 Attending physician: Sree Conroy MD Consults: 12/09/23 09:56 Consult Physician Urgent Consulting Provider: Swati Almendarez Consult Reason/Comments: Acute ataxia, acute dysarthria, suspected CVA Do you want consulting provider notified?: Yes Primary care physician: Fuentes Rey [facility] Course: Assessment: High risk TIA Neurological deficits including dysphagia, aphasia, and ataxia accompanied by persistent dizziness Hypertension Hyperlipidemia Hospital Course: Patient is a very pleasant 58-year-old male with a past medical history of hypertension and hyperlipidemia. He presented to the emergency department with reports of slurred speech, dizziness, and unsteady gait. Patient and patient's at bedside report patient awoke around 5:30 AM this morning at his baseline mentation. Around 6:10 AM he felt a sudden pop in his left ear accompanied by significant dizziness/lightheadedness. Patient reports calling for his and she states she assisted him to go lie down but states he kept falling and leaning towards the left. She reports once she assisted him to lie down he began having slurred speech and seemed quite off so she called EMS. Patient denies having headache, changes in vision or hearing, chest pain or palpitations, shortness of breath, or experiencing any focal weakness in his extremities. Patient does report feeling some numbness/tingling in his right shoulder, persistent slurred speech and dizziness but also states since arrival to the hospital he noticed he had some difficulty swallowing the aspirin he was given. He underwent evaluation in the emergency department and a stroke code was activated. Vital signs upon arrival show blood pressure 210/115, heart rate 57, respiratory rate 18, temp 98.0 F, and SpO2 of 98% on room air. Blood glucose was 145. EKG was completed showing sinus bradycardia at 49 bpm with no significant T wave or ST abnormalities showing no signs of acute ischemia. CT head was negative for acute intracranial process. CTA head and neck showing no evidence of dissection of the cervical internal carotid arteries or vertebral arteries or any evidence of stenosis at the carotid bifurcations. Initial NIH score was 1 for dysarthria and ataxia.. Emergency physician discussed with neuro interventionalist and patient was considered not a candidate for tPA due to low NIH score. Labs were completed and reviewed. CBC, coagulation profile and CMP were unremarkable. Troponin was less than 0.012. Patient was admitted under our services with consultation to neurology. MRI brain without contrast r eporting some fluid surrounding the optic nerves bilaterally appears to be associated with palpable edema. MRA head and neck showing portion of the left vertebral artery from the faustin magnum to the basilar artery is incompletely visualized, concerning for thrombus however discrete dissection was not identified. Discussed these findings with neurologist, patient was started on Brilinta in addition to daily aspirin. Echocardiogram revealing a preserved EF of 55 to 60% with a mildly dilated aortic root and mild pulmonary hypertension. Patient's symptoms did completely resolve within 24 hours, and therefore was deemed to have had a high risk TIA. He was prescribed aspirin/Brilinta on discharge. His atorvastatin was increased from 10 mg every other day to 40 mg at bedtime. DAVEY was considered but deferred given completely normal echo. He has follow-up arranged with primary care physician as well as neurologist. He was given a 30-day event monitor on discharge. I spent 38 minutes coordinating this discharge on 12/10 Physical exam: Gen: In NAD, non-toxic HEENT: normocephalic, atraumatic, hearing acuity is intant, mucous membranes moist CVS: perfusing all extremities well, no pitting edema, Respiratory: symmetric chest expansion, no accessory muscle use, GI: soft, NTTP, ND, : no suprapubic tenderness, no CVA tenderness MSK/Derm: no rashes, cyanosis Neuro: CN II-XII intact, no motor weakness, Psych: cooperative, euthymic mood, judgment and insight is intact Patient Condition at Discharge: Good Plan - Discharge Summary Discharge Rx Participant: Yes New Discharge Prescriptions: New Ticagrelor [Brilinta] 90 mg PO BID #60 tab Atorvastatin [Lipitor] 40 mg PO HS #30 tab Continue amLODIPine [Norvasc] 10 mg PO DAILY@1200 Aspirin EC [Ecotrin Low Dose] 81 mg PO DAILY Ascorbic Acid [Vitamin C] 1,000 mg PO DAILY Cholecalciferol (Vitamin D3) [Vitamin D3 (50 Mcg = 2000 Iu)] 50 mcg PO DAILY Discontinued Red Yeast Rice 600 mg PO DAILY Turmeric Root Extract [Turmeric] 500 mg PO DAILY Arginine Oxoglurate [l-Arginine] 350 mg PO DAILY Atorvastatin [Lipitor] 20 mg PO MOWEFR@2100 Discharge Medication List Ascorbic Acid [Vitamin C] 1,000 mg PO DAILY 12/09/23 [History] Aspirin EC [Ecotrin Low Dose] 81 mg PO DAILY 12/09/23 [History] Cholecalciferol (Vitamin D3) [Vitamin D3 (50 Mcg = 2000 Iu)] 50 mcg PO DAILY 12/09/23 [History] amLODIPine [Norvasc] 10 mg PO DAILY@1200 12/09/23 [History] Atorvastatin [Lipitor] 40 mg PO HS #30 tab 12/11/23 [Rx] Ticagrelor [Brilinta] 90 mg PO BID #60 tab 12/11/23 [Rx] Follow up Appointment(s)/Referral(s): Fuentes Ruby MD [Primary Care Provider] - 1-2 days Larissa Pandey MD [STAFF PHYSICIAN] - 1 Week Discharge Disposition: HOME SELF-CARE
== END 2023-12-11 12:51 | disposition home or self-care (01) | DRG 66 ==
LOC: EC 07:12 → 3SCARD 09:57
PROVIDERS: ADMIT Student in an Organized Health Care Education/Training Program; ATTEND Student in an Organized Health Care Education/Training Program
DX: I63.89 Other cerebral infarction (principal); I10 Essential (primary) hypertension; I27.20 Pulmonary hypertension, unspecified; I65.02 Occlusion and stenosis of left vertebral artery; R13.10 Dysphagia, unspecified; E78.5 Hyperlipidemia, unspecified; R29.701 NIHSS score 1; R47.01 Aphasia; R47.81 Slurred speech; Z79.82 Long term (current) use of aspirin; Z79.899 Other long term (current) drug therapy
CPT/HCPCS: 36415; 70450; 70496; 70498; 70544; 70549; 70551; 71046; 80053; 80061; 82550; 83036; 84443; 84484; 85025; 85610; 85730; 93005; 93270; 93306; 96374; 99291

== ENCOUNTER 2023-12-15 12:55 | Inpatient (IN) | payer BC ==
--- NOTE | 2023-12-15 14:13 | ED ---
General Adult HPI - General Chief complaint: Neuro Symptoms/Deficit Stated complaint: TIA Time Seen by Provider: 12/15/23 13:10 Source: patient, EMS, RN notes reviewed, old records reviewed Mode of arrival: EMS Limitations: no limitations - History of Present Illness Initial comments: Is a 58-year-old male who presents to the emergency department and was in a week ago with strokelike symptoms and patient had a CT CTA and a MRI and it showed 100% occlusion of the right vertebral artery. Patient states he was having headache this morning and it eventually subsided. Patient states about noon he started having some tingling sensation left side of his body he did not lose sensation but it did not feel normal. Patient also states it felt more diffi cult to swallow which is improved since earlier but is not completely resolved. Patient is having no problem handling his saliva. Patient denies any arm or leg weakness or numbness. Patient denies any visual disturbance. Patient denies any slurred speech or facial droop. - Related Data Home Medications Medication Instructions Recorded Confirmed Ascorbic Acid [Vitamin C] 1,000 mg PO DAILY 12/09/23 12/15/23 Aspirin EC [Ecotrin Low Dose] 81 mg PO DAILY 12/09/23 12/15/23 Cholecalciferol (Vitamin D3) 50 mcg PO DAILY 12/09/23 12/15/23 [Vitamin D3 (50 Mcg = 2000 Iu)] amLODIPine [Norvasc] 10 mg PO HS 12/09/23 12/15/23 Cetirizine HCl [Zyrtec] 10 mg PO HS 12/15/23 12/15/23 Melatonin 10 mg PO HS 12/15/23 12/15/23 Previous Rx's Medication Instructions Recorded Atorvastatin [Lipitor] 40 mg PO HS #30 tab 12/11/23 Ticagrelor [Brilinta] 90 mg PO BID #60 tab 12/11/23 Allergies Allergy/AdvReac Type Severity Reaction Status Date / Time No Known Allergies Allergy Verified 12/15/23 13:11 Review of Systems ROS Statement: Those systems with pertinent positive or pertinent negative responses have been documented in the HPI. ROS Other: All systems not noted in ROS Statement are negative. Past Medical History Past Medical History: Hyperlipidemia, Hypertension History of Any Multi-Drug Resistant Organisms: None Reported Additional Past Surgical History / Comment(s): sprial fracture to left femur, Past Psychological History: No Psychological Hx Reported Smoking Status: Never smoker Past Alcohol Use History: Occasional Past Drug Use History: None Reported - Past Family History Father Family Medical History: Dementia Mother History Unknown: Yes General Exam - General Exam Comments Initial Comments: GENERAL: Patient is well-developed and well-nourished. Patient is nontoxic and well- hydrated and is in no acute distress. ENT: Neck is soft and supple. No significant lymphadenopathy is noted. Oropharynx is clear. Moist mucous membranes. Neck has full range of motion without eliciting any pain. EYES: The sclera were anicteric and conjunctiva were pink and moist. Extraocular movements were intact and pupils were equal round and reactive to light. Eyelids were unremarkable. PULMONARY: Unlabored respirations. Good breath sounds bilaterally. No audible rales rhonchi or wheezing was noted. CARDIOVASCULAR: There is a regular rate and rhythm without any murmurs gallops or rubs. ABDOMEN: Soft and nontender with normal bowel sounds. SKIN: Skin is clear with no lesions or rashes and otherwise unremarkable. NEUROLOGIC: Patient is alert and oriented x3. Cranial nerves II through XII are grossly intact. Motor and sensory are also intact. Normal speech, volume and content. Symmetrical smile. NIH is 0 MUSCULOSKELETAL: Normal extremities with adequate strength and full range of motion. LYMPHATICS: No significant lymphadenopathy is noted PSYCHIATRIC: Normal psychiatric evaluation. Limitations: no limitations Course Vital Signs 12/15/23 12/15/23 12/15/23 13:08 14:00 17:05 Temperature 98 F Pulse Rate 68 63 67 Respiratory 18 18 Rate Blood Pressure 204/95 199/100 172/93 O2 Sat by Pulse 98 96 97 Oximetry Medical Decision Making - Medical Decision Making Was pt. sent in by a medical professional or institution (, PA, [employer], urgent care, hospital, or half-way...) When possible be specific @ -No Did you speak to anyone other than the patient for history (EMS, parent, family, police, friend...)? What history was obtained from this source @ -No Did you review nursing and triage notes (agree or disagree)? Why? @ -I reviewed and agree with nursing and triage notes Were old charts reviewed (outside hosp., previous admission, EMS record, old EKG, old radiological studies, urgent care reports/EKG's, half-way records)? Report findings @ -I compared the CTA and the CT of the brain showed no acute abnormality when compared to an old scan Differential Diagnosis (chest pain, altered mental status, abdominal pain women, abdominal pain men, vaginal bleeding, weakness, fever, dyspnea, syncope, headache, dizziness, GI bleed, back pain, seizure, CVA, palpatations, mental health, musculoskeletal)? @ -Differential CVA Ischemic stroke, hemorrhagic stroke, brain tumor, atypical migraine, Wernicke's encephalopathy, seizure, multiple sclerosis, meningitis, encephalitis, hypoglycemia, Guillain-Resendiz, electrolytes disturbance, myasthenia gravis.... This is not meant to be an all-inclusive list EKG interpreted by me (3pts min.). @ -As above X-rays interpreted by me (1pt min.). @ -Chest x-ray shows no acute normality CT interpreted by me (1pt min.). @ -CT of the brain shows no acute normality CT angiogram shows no abnormality U/S interpreted by me (1pt. min.). @ -None What testing was considered but not performed or refused? (CT, X-rays, U/S, labs)? Why? @ -None What meds were considered but not given or refused? Why? @ -None Did you discuss the management of the patient with other professionals (professionals i.e. , PA, [employer], lab, RT, psych nurse, 7th grade social studies teacher, quality control engineering technician, teacher, search and rescue officer, case maker)? Give summary @ -I spoke with sound physicians they agreed to admit the patient I admitted the patient Was smoking cessation discussed for >3mins.? @ -No Was critical care preformed (if so, how long)? @ -No Were there social determinants of health that impacted care today? How? (Homelessness, low income, unemployed, alcoholism, drug addiction, transportation, low edu. Level, literacy, decrease access to med. care, fci, rehab)? @ -No Was there de-escalation of care discussed even if they declined (Discuss DNR or withdrawal of care, Hospice)? DNR status @ -No What co-morbidities impacted this encounter? (DM, HTN, Smoking, COPD, CAD, Can cer, CVA, ARF, Chemo, Hep., AIDS, mental health diagnosis, sleep apnea, morbid obesity)? @ -None Was patient admitted / discharged? Hospital course, mention meds given and route, prescriptions, significant lab abnormalities, going to OR and other pertinent info. @ -Patient CT and CT angiogram showed no acute abnormality. Dr. Epstein came down and saw the patient and want to keep the patient get an MRI and have an ophthalmology consult. Undiagnosed new problem with uncertain prognosis? @ -No Drug Therapy requiring intensive monitoring for toxicity (Heparin, Nitro, Insulin, Cardizem)? @ -No Were any procedures done? @ -No Diagnosis/symptom? @ -TIA Acute, or Chronic, or Acute on Chronic? @ -Acute Uncomplicated (without systemic symptoms) or Complicated (systemic symptoms)? @ -Complicated Side effects of treatment? @ -No Exacerbation, Progression, or Severe Exacerbation? @ -No Poses a threat to life or bodily function? How? (Chest pain, USA, IA, pneumonia, PE, COPD, DKA, ARF, appy, cholecystitis, CVA, Diverticulitis, Homicidal, Suicidal, threat to staff... and all critical care pts) @ -Yes this could lead to stroke and significant morbidity and mortality - Lab Data Result diagrams: 12/15/23 14:10 12/15/23 14:10 Lab Results 12/15/23 12/15/23 12/15/23 Range/Units 14:10 14:10 14:10 WBC 7.3 (3.8-10.6) k/uL RBC 5.51 (4.30-5.90) m/uL Hgb 16.6 (13.0-17.5) gm/dL Hct 49.0 (39.0-53.0) % MCV 88.9 (80.0-100.0) fL MCH 30.2 (25.0-35.0) pg MCHC 33.9 (31.0-37.0) g/dL RDW 12.9 (11.5-15.5) % Plt Count 190 (150-450) k/uL MPV 8.4 Neutrophils % 59 % Lymphocytes % 26 % Monocytes % 7 % Eosinophils % 4 % Basophils % 1 % Neutrophils # 4.3 (1.3-7.7) k/uL Lymphocytes # 1.9 (1.0-4.8) k/uL Monocytes # 0.5 (0-1.0) k/uL Eosinophils # 0.3 (0-0.7) k/uL Basophils # 0.1 (0-0.2) k/uL PT 10.3 (10.0-12.5) sec INR 0.9 (<1.2) APTT 22.9 (22.0-30.0) sec Sodium 137 (137-145) mmol/L Potassium 3.5 (3.5-5.1) mmol/L Chloride 103 (98-107) mmol/L Carbon Dioxide 22 (22-30) mmol/L Anion Gap 12 mmol/L BUN 18 (9-20) mg/dL Creatinine 0.83 (0.66-1.25) mg/dL Est GFR (CKD-EPI)AfAm >90 (>60 ml/min/1.73 sqM) Est GFR (CKD-EPI)NonAf >90 (>60 ml/min/1.73 sqM) Glucose 127 H (74-99) mg/dL Calcium 9.4 (8.4-10.2) mg/dL Total Bilirubin 0.7 (0.2-1.3) mg/dL AST 29 (17-59) U/L ALT 41 (4-49) U/L Alkaline Phosphatase 74 (38-126) U/L Creatine Kinase 110 (55-170) U/L Troponin I (0.000-0.034) ng/mL Total Protein 7.2 (6.3-8.2) g/dL Albumin 4.5 (3.5-5.0) g/dL 12/15/23 Range/Units 14:10 WBC (3.8-10.6) k/uL RBC (4.30-5.90) m/uL Hgb (13.0-17.5) gm/dL Hct (39.0-53.0) % MCV (80.0-100.0) fL MCH (25.0-35.0) pg MCHC (31.0-37.0) g/dL RDW (11.5-15.5) % Plt Count (150-450) k/uL MPV Neutrophils % % Lymphocytes % % Monocytes % % Eosinophils % % Basophils % % Neutrophils # (1.3-7.7) k/uL Lymphocytes # (1.0-4.8) k/uL Monocytes # (0-1.0) k/uL Eosinophils # (0-0.7) k/uL Basophils # (0-0.2) k/uL PT (10.0-12.5) sec INR (<1.2) APTT (22.0-30.0) sec Sodium (137-145) mmol/L Potassium (3.5-5.1) mmol/L Chloride (98-107) mmol/L Carbon Dioxide (22-30) mmol/L Anion Gap mmol/L BUN (9-20) mg/dL Creatinine (0.66-1.25) mg/dL Est GFR (CKD-EPI)AfAm (>60 ml/min/1.73 sqM) Est GFR (CKD-EPI)NonAf (>60 ml/min/1.73 sqM) Glucose (74-99) mg/dL Calcium (8.4-10.2) mg/dL Total Bilirubin (0.2-1.3) mg/dL AST (17-59) U/L ALT (4-49) U/L Alkaline Phosphatase (38-126) U/L Creatine Kinase (55-170) U/L Troponin I <0.012 (0.000-0.034) ng/mL Total Protein (6.3-8.2) g/dL Albumin (3.5-5.0) g/dL Disposition Clinical Impression: Transient cerebral ischemia Disposition: ADMITTED IP TO THIS HOSP Referrals: Fuentes Ruby MD [Primary Care Provider] - 1-2 days Time of Disposition: 19:22
[2023-12-15 14:20] LABS: Basophils # (A) 0.1 k/uL (0-0.2); Basophils % (A) 1 %; Eosinophils # (A) 0.3 k/uL (0-0.7); Eosinophils % (A) 4 %; HGB 16.6 gm/dL (13.0-17.5); Lymphocytes # (A) 1.9 k/uL (1.0-4.8); Lymphocytes % (A) 26 %; MCH 30.2 pg (25.0-35.0); MCHC 33.9 g/dL (31.0-37.0); MCV 88.9 fL (80.0-100.0); Mean Platelet Volume 8.4; Monocytes # (A) 0.5 k/uL (0-1.0); Monocytes % (A) 7 %; Neutrophils # (A) 4.3 k/uL (1.3-7.7); Neutrophils % (A) 59 %; Platelet Count 190 k/uL (150-450); RBC 5.51 m/uL (4.30-5.90); RDW 12.9 % (11.5-15.5); WBC 7.3 k/uL (3.8-10.6)
[2023-12-15 14:34] LABS: ALT 41 U/L (4-49); AST 29 U/L (17-59); African American GFR (CKD) >90 (>60 ml/min/1.73 sqM); Albumin 4.5 g/dL (3.5-5.0); Alkaline Phosphatase 74 U/L (38-126); Anion Gap 12 mmol/L; Blood Urea Nitrogen 18 mg/dL (9-20); Calcium 9.4 mg/dL (8.4-10.2); Carbon Dioxide 22 mmol/L (22-30); Chloride 103 mmol/L (98-107); Creatine Kinase 110 U/L (55-170); Glucose 127 mg/dL (74-99); Non-African American GFR(CKD) >90 (>60 ml/min/1.73 sqM); Potassium 3.5 mmol/L (3.5-5.1); Sodium 137 mmol/L (137-145); Total Bilirubin 0.7 mg/dL (0.2-1.3); Total Protein 7.2 g/dL (6.3-8.2)
[2023-12-15 14:37] LABS: INR 0.9 (<1.2); Partial Thromboplastin Time 22.9 sec (22.0-30.0); Prothrombin Time 10.3 sec (10.0-12.5)
--- NOTE | 2023-12-15 14:50 | XR ---
EXAMINATION TYPE: XR chest 2V DATE OF EXAM: 12/15/2023 2:44 PM CLINICAL INDICATION:Male, 58 years old with history of altered mental status; [facility] COMPARISON: 12/09/2023 TECHNIQUE: XR chest 2V Frontal and lateral views of the chest. FINDINGS: Lungs/Pleura: There is no evidence of pleural effusion, focal consolidation, or pneumothorax. Pulmonary vascularity: Unremarkable. Heart/mediastinum: Cardiomediastinal silhouette is unremarkable. Musculoskeletal: No acute osseous pathology. Other findings: None Lines/Tubes: None. IMPRESSION: No radiographic evidence of an acute cardiopulmonary process
--- NOTE | 2023-12-15 15:43 | CT ---
EXAMINATION TYPE: CT brain wo con DATE OF EXAM: 12/15/2023 COMPARISON: None HISTORY: facial droop and slurred speech for about 10 mins. same symptoms last week CT DLP: 1144.6 mGycm Automated exposure control for dose reduction was used. FINDINGS: The ventricles, basal cisterns and sulci over the convexities are within normal limits and there is n o mass effect or shift of the midline structures. No abnormal density is seen throughout the brain parenchyma and there is no acute intra or extra-axia l hemorrhage. Posterior fossa including the brainstem, fourth ventricle and cerebellopontine angles appear grossly normal. Intraorbital contents appear normal with symmetric visualized paranasal sinuses and mastoid air cells are well aerated IMPRESSION: NO ACUTE BLEED OR MASS EFFECT. NO SIGNIFICANT ABNORMALITY SEEN.
--- NOTE | 2023-12-15 15:48 | CT ---
EXAMINATION TYPE: CT angio head neck DATE OF EXAM: 12/15/2023 HISTORY: facial droop and slurred speech for about 10 mins. same symptoms last week COMPARISON: 12/09/2023 CT DLP: 1039.8 mGycm. Automated Exposure Control for Dose Reduction was Utilized. TECHNIQUE: CTA scan of the head and neck is performed with IV Contrast, patient injected with 65ml m L of Isovue 370, axial images are obtained, coronal and sagittal reformatted images are reviewed. 3D reconstructed images are created on an independent workstation and reviewed. FINDINGS: The brachiocephalic origins are widely patent without significant stenosis. The common and internal carotid arteries are widely patent without significant stenosis. There is a t iny calcified plaque in the left carotid bifurcation which does not compromise the lumen. Intracranially there is no sizable aneurysm sac, vascular malformation stenosis or segmental occlusio n. IMPRESSION: No significant abnormality seen. NASCET criteria was used in interpretation of this exam?
--- NOTE | 2023-12-15 17:42 | P.CNNES ---
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 He is accompanied with his . Patient stated that he was sleeping and he woke up with a h eadache around 450 and the headache is over the anterior temporal/frontal and it was a sharp and throbbing that he went back to sleep. He states he has a high threshold for pain. Then later on he had a headache again and it was around noontime. he also noticed pain that was sharp around the left medial nasal orbital region but mostly nasal as well. Patient was also flushed and felt clammy. Denies any radiation of the headache. Denies any nausea vomiting. He notified his that he felt off. his headache is resolved.the headache he has severe high blood pressure. His felt he had some speech difficulty. Patient denies any visual disturbance, any numbness, any weakness, any diffic ulty swallowing. he denies of any falls. Denies any fever. Denies any sick contacts or recent travel. of note patient had similar presentation on 12/09/2023 at present our facility and was evaluated by Dr. Almendarez. patient had extensive workup and had MRA of the head and neck which showed portion of left vertebral artery from the form and magnum to the basilar artery is incompletely visualized. He had MRI of the brain which was negative for any acute or subacute stroke. But it shows a some fluid surrounding the optic nerve bilaterally.also last time he had severe escalated blood pressure. He had a 2-D echo which was negative for any obvious valvular abnormality. Patient was discharged on ASA 81mg daily and Brilinta 90mg bid. per the patient's and his they were notified that papilledem on MRI that Dr. Almendarez notified them was unsure but possible due to HTN. Please refer to Dr. Almendarez's notes for further details. 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 Denies any seizures. He does have underlying headache from TBI but not to this severity. Some of the work-up during this ED visit consisted of: on initial presentation patient blood pressure is 204/95. Then repeat it was 199/100. CBC with differential, chemistry panel NIH stroke scale is 0. CT of the head is reported as no acute bleed or mass effect. No significant abnormality seen.I personally reviewed the CT and I agree there is no acute subacute stroke. CT angiography of the head and neck is unremarkable in which there is no significant abnormality seen reported.I personally reviewed it and there is left ICA occlusion that's also reported on the prior images recently Review of Systems Review of system: The 12 point system was reviewed and apparent positive and negative per HPI. Past Medical History Past Medical History: Hyperlipidemia, Hypertension History of Any Multi-Drug Resistant Organisms: None Reported Additional Past Surgical History / Comment(s): sprial fracture to left femur, Past Psychological History: No Psychological Hx Reported Smoking Status: Never smoker Past Alcohol Use History: Occasional Past Drug Use History: None Reported - Past Family History Father Family Medical History: Dementia Mother History Unknown: Yes Medications and Allergies Home Medications Medication Instructions Recorded Confirmed Type Ascorbic Acid [Vitamin C] 1,000 mg PO DAILY 12/09/23 12/15/23 History Aspirin EC [Ecotrin Low Dose] 81 mg PO DAILY 12/09/23 12/15/23 History Cholecalciferol (Vitamin D3) 50 mcg PO DAILY 12/09/23 12/15/23 History [Vitamin D3 (50 Mcg = 2000 Iu)] amLODIPine [Norvasc] 10 mg PO HS 12/09/23 12/15/23 History Atorvastatin [Lipitor] 40 mg PO HS #30 tab 12/11/23 12/15/23 Rx Ticagrelor [Brilinta] 90 mg PO BID #60 tab 12/11/23 12/15/23 Rx Cetirizine HCl [Zyrtec] 10 mg PO HS 12/15/23 12/15/23 History Melatonin 10 mg PO HS 12/15/23 12/15/23 History Allergies Allergy/AdvReac Type Severity Reaction Status Date / Time No Known Allergies Allergy Verified 12/15/23 13:11 Physical Examination - Vital Signs Vital Signs: Vital Signs Temp Pulse Resp BP Pulse Ox 12/15/23 14:00 63 199/100 96 12/15/23 13:08 98 F 68 18 204/95 98 Intake and Output 12/15/23 12/15/23 12/15/23 06:59 14:59 22:59 Other: Weight 97.522 kg GENERAL: The patient is lying in bed and is not in acute distress. NEUROLOGICAL: Higher mental function: The patient is awake, alert, oriented to self, place and time. Patient is following commands. No aphasia and no neglect. Cranial nerves: The pupils are round, equal and reactive to light and accommodation. Visual hall are full to confrontation throughout. Extraocular movement is intact no nystagmus is noted. Facial sensation is normal to touch throughout. The facial strength is normal throughout. Hearing is normal bi laterally to hand rub. Tongue is midline and moved [id number] without any difficulty. No dysarthria is noted. Shoulder shrug is normal bilaterally. Motor: The strength is 5 over 5 throughout. Normal tone and bulk. Cerebellum: Normal finger to nose heel to azevedo bilaterally. Sensation: Sensation is normal to touch throughout. Reflexes (right/left): 2+ throughout. Plantars are downgoing bilaterally. Results - Laboratory Findings CBC and BMP: 12/15/23 14:10 12/15/23 14:10 Abnormal Lab Findings: Abnormal Labs 12/15/23 14:10 Glucose 127 H Assessment and Plan Assessment: this is a 58-year-old gentleman who presents because of headache over the anterior temporal/frontal as well as some speech difficulty. His blood pressure was 200/99 on presentation. She was here last week with similar presentation with also elevated blood pressure and images shows left vertebral artery occlusion at the skull base. Was felt the patient had recurrent TIA possibly in the left PICA distribution on recent visit. His recent MRI the brain shows some fluid surrounding the optic nerve bilaterally associate with papilledema. Cephalgia with expressive aphasia: unsure exactly etiology. Unsure if due to accelerated HTN. Cannot rule out TIA. 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 Left vertebral artery occlusion at the skull base History of traumatic brain injury in 1982 Plan: I ordered MRI of the brain with and without, MRI of the orbits I ordered a routine EEG since the patient continues to have repeated episodes to rule out any underlying form discharges or underlying seizure Ordered ESR, CRP Recommend ophthalmology consultation for his recent MRI the brain revealing possible papilledema and this was relayed to ED physician. Ordered vitamin B-12 Ordered unlimited 2-D echo Recommend resuming his home dose ASA 81mg daily and Brilinta 90mg bid. Continue neuro check Cardiac monitoring Recommend PT, OT and CORPORATE TRAINER Will defer the rest of medical management to the primary team. Recommend Subq heparin or Lovenox for DVT prophylaxis. The plan is discussed with patient, his who is at bedside and ED physician. Thank you for the consultation. Time with Patient: Greater than 30
[2023-12-15] MEDS: ASPIRIN 81 MG PO STA (17:53)
[2023-12-15 19:58] LABS: C Reactive Protein <0.5 mg/dL (<1.0)
[2023-12-15] MEDS: TICAGRELOR 90 MG TAB PO SCH (22:18)
[2023-12-15] MEDS: ATORVASTATIN 80 MG TAB PO SCH (22:18)
--- NOTE | 2023-12-16 01:19 | P.HPIM ---
History of Present Illness H&P Date: 12/15/23 Chief Complaint: Strokelike symptoms 58-year-old male with hypertension hyperlipidemia Patient coming in for evaluation of strokelike symptoms. He reports that today was having some right upper extremity tingling and numbness, along with episodes of headache since he woke up this morning, also he had some trouble swallowing which improved later however due to having similar strokelike symptoms about a week ago when he had some ataxia and slurred speech back then. He was evaluated in our facility and was diagnosed with TIA. Patient was discharged on aspirin and Brilinta. His grew concerned this time due to recurrent symptoms and decided to bring him in for evaluation despite his symptoms improving. Imaging at that time also revealed portions of left vertebral artery not completely visualized However patient and his adds that while in the ED his symptoms suddenly started getting worse, and currently she noticed some garbled nasal speech along with difficulty swallowing. Patient otherwise denies any headache changes in vision or hearing denies any other focal neurodeficits denies any weakness in arms or legs. Actually upon my evaluation patient was walking from the bathroom back to his bed with no limitations. Patient denies any tobacco smoking illicit drugs or heavy alcohol Patient has just came back from MRI of the brain results still pending Overall there has been no changes in his overall health other than what mentioned above. The adds that recently his blood pressure medications were adjusted by increasing the dose on his amlodipine for better blood pressure control review of systems Pertinent positives as noted in HPI. All other systems were reviewed and are negative on exam Constitutional: No acute distress, Eyes: Anicteric sclerae, moist conjunctiva, Pupils equal round reactive to light ENMT: NC/AT Oropharynx clear, no erythema, or exudates Neck: Supple, no masses, or JVD No carotid bruits No thyromegaly Lungs: Clear to auscultation Clear to percussion Normal respiratory effort, no accessory muscle use Cardiovascular: Heart regular in rate and rhythm, No murmurs, gallops, or rubs No peripheral edema Abdominal: Soft Nontender, no guarding, rebound or rigidity Abdomen moving with respiration Normoactive bowel sounds No hepatomegaly, No splenomegaly No palpable mass Extremities: No digital cyanosis No clubbing Pedal pulses intact and symmetrical Radial pulses intact and symmetrical No calf tenderness Psychiatric: Alert and oriented to person, place and time Appropriate affect fair judgement Neuro Muscles Strength 5/5 in all 4 extremities Sensation to light touch grossly present throughout Cranial nerves II-XII grossly intact except for cranial nerve X with deviated uvula upon phonation Lymphatics: no palpable cervical or supraclavicular lymph nodes Past Medical History Past Medical History: Hyperlipidemia, Hypertension History of Any Multi-Drug Resistant Organisms: None Reported Additional Past Surgical History / Comment(s): sprial fracture to left femur, Smoking Status: Never smoker - Past Family History Father Family Medical History: Dementia Mother History Unknown: Yes Medications and Allergies Home Medications Medication Instructions Recorded Confirmed Type Ascorbic Acid [Vitamin C] 1,000 mg PO DAILY 12/09/23 12/15/23 History Aspirin EC [Ecotrin Low Dose] 81 mg PO DAILY 12/09/23 12/15/23 History Cholecalciferol (Vitamin D3) 50 mcg PO DAILY 12/09/23 12/15/23 History [Vitamin D3 (50 Mcg = 2000 Iu)] amLODIPine [Norvasc] 10 mg PO DAILY 12/09/23 12/15/23 History Atorvastatin [Lipitor] 40 mg PO HS #30 tab 12/11/23 12/15/23 Rx Ticagrelor [Brilinta] 90 mg PO BID #60 tab 12/11/23 12/15/23 Rx Cetirizine HCl [Zyrtec] 10 mg PO HS 12/15/23 12/15/23 History Melatonin 10 mg PO HS 12/15/23 12/15/23 History Allergies Allergy/AdvReac Type Severity Reaction Status Date / Time No Known Allergies Allergy Verified 12/15/23 13:11 Physical Exam Vitals: Vital Signs Temp Pulse Pulse Resp BP BP BP 12/16/23 00:00 97.5 F L 96 18 117/69 12/15/23 22:15 97.8 F 72 18 203/115 12/15/23 21:20 97.8 F 88 18 183/108 167/100 12/15/23 20:52 98.4 F 89 18 150/95 12/15/23 19:00 81 18 183/88 12/15/23 17:05 67 18 172/93 12/15/23 14:00 63 199/100 12/15/23 13:08 98 F 68 18 204/95 Pulse Ox 12/16/23 00:00 93 L 12/15/23 22:15 96 12/15/23 21:20 97 12/15/23 20:52 97 12/15/23 19:00 95 12/15/23 17:05 97 12/15/23 14:00 96 12/15/23 13:08 98 Intake and Output 12/15/23 12/15/23 12/16/23 14:59 22:59 06:59 Other: Voiding Method Toilet # Voids 1 Weight 97.522 kg 97.522 kg Results CBC & Chem 7: 12/15/23 14:10 12/15/23 14:10 Labs: Abnormal Lab Results - Last 24 Hours (Table) 12/15/23 Range/Units 14:10 Glucose 127 H (74-99) mg/dL Thrombosis Risk Factor Assmnt - Choose All That Apply Each Factor Represents 1 point: Age 41-60 years Thrombosis Risk Factor Assessment Total Risk Factor Score: 1 Thrombosis Risk Factor Assessment Level: Low Risk Assessment and Plan Assessment: 58-year-old male with recent TIA, hypertension hyperlipidemia coming in with strokelike symptoms having trouble with speech and swallowing and headache. Patient also had another episode of TIA about a week ago at that time imaging revealed possible left vertebral artery occlusion MRI of the brain suggestive of optic nerve edema which is thought to be secondary to hypertension last time I discussed the case with ED doctor and accepted the admission for strokelike symptoms suggestive of brainstem ischemia for neurologic evaluation with anticip ated length of stay more than 2 midnights Suspected brainstem stroke Presentation suggestive of bulbar palsy Neurology following Follow-up MRI result Neurochecks every 2 hours Continue with aspirin and Brilinta per neurology recommendations Continue with atorvastatin Fall precautions PT/OT evaluation Speech eval Echocardiogram with bubble study Allow for permissive hypertension for 24 to [address] showed no acute intracranial pathology CT angio of the head and neck showed no significant abnormality Chronic conditions Hypertension, hyperlipidemia Management as above Blood work showing white count 7 hemoglobin 16.6 Sodium 137 potassium 3.5 BUN 18 creatinine 0.8 Trope 0.012 Full code DVT prophylaxis heparin subcu 3 times daily
[2023-12-16] MEDS: SODIUM CHLORIDE 0.9% 1,000 ML IV SCH (03:20)
--- NOTE | 2023-12-16 04:43 | MR ---
EXAMINATION TYPE: MR brain/orbits wo/w con DATE OF EXAM: 12/15/2023 COMPARISON: Same day CT brain study. MRI brain 6 days earlier. HISTORY: Aphasia, headaches, abnormal fluid in eyes from prior. TECHNIQUE: Multiplanar, multisequence images of the brain and brainstem along with the orbits are all performed without and with IV contrast, utilizing 10 mL intravenous Gadobutrol . FINDINGS: Diffusion weighted images demonstrate no evidence of a recent infarct or other diffusion ab normality. There is no extra-axial fluid collection or significant white matter signal abnormality. The ventricular system and cisternal spaces remain normal in size and appearance. The brain volume is age appropriate. Midline structures redemonstrate normal morphology. The craniocervical junction remaining within nor mal limits. Post contrast images demonstrate no abnormal enhancement. The dural venous sinuses appea r patent. The visualized sinuses remain clear. Imaging of the bilateral globes shows Stable symmetric slight prominence of CSF within the optic nerv e sheaths. Globes remain intact bilaterally. Rectus muscles are symmetric and within normal limits. N o abnormal enhancing masses are seen. Optic chiasm is not effaced. Suprasellar cistern is maintained. IMPRESSION: No significant white matter changes or abnormal enhancement. No significant change from p rior MRI.
[2023-12-16 06:01] LABS: Glucose,Whole Blood 107 mg/dL (70-110)
[2023-12-16] MEDS: HEPARIN SODIUM,PORCINE 5,000 UNIT/ML 1 ML VIAL SQ SCH (10:00)
[2023-12-16 11:49] LABS: Glucose,Whole Blood 110 mg/dL (70-110)
[2023-12-16] MEDS: ASPIRIN 81 MG PO SCH (12:58)
[2023-12-16] MEDS: TOPIRAMATE 25 MG TAB PO SCH (12:58)
--- NOTE | 2023-12-16 13:28 | P.PN ---
Subjective Progress Note Date: 12/16/23 Hospital Course: 58-year-old male with history of hypertension, dyslipidemia presented with str okelike symptoms. He claims that he was recently discharged from our facility with similar symptoms, was given a diagnosis of TIA, and was sent home on aspirin, Brilinta, statin, event monitor was placed. While in the ED, patient was hypertensive up to 204/95, rest of the vital signs were within normal limits. Laboratory workup unremarkable. EKG showed normal sinus rhythm with nonspecific ST-T wave changes. Chest x-ray unremarkable. Head CT did not show any acute process. Head and neck CTA did not show any acute process. Brain MRI no significant changes. Neurology consulted. Subjective: Patient seen and examined at bedside. No acute events overnight. Claims that speech and swallowing is better. Still has right arm weakness. Pertinent positives and negatives as discussed above, a complete review of systems was performed and all other systems are negative. Vitals Signs Reviewed. General: Nontoxic, no distress, appears at stated age Derm: Warm, dry Head: Atraumatic, normocephalic, symmetric Eyes: EOMI, no lid lag, anicteric sclera Mouth: No lip lesion, mucus membranes moist Cardiovascular: S1S2 reg, no murmur Lungs: CTA bilateral, no rhonchi, no rales, no accessory muscle use Abdominal: Soft, nontender to palpation, no guarding, no appreciable organomegaly Ext: No gross muscle atrophy, no edema, no contractures Neuro: CN II-XI grossly intact, no focal neuro deficits Psych: Alert, oriented, appropriate affect Data Reviewed Today: Pertinent Labs: Blood glucose 10 7-110 Imaging: Brain MRI/orbit did not show any acute process Assessment and Plan: Active: Strokelike symptoms - Discussed management with neurology, Brilinta discontinued, continue aspirin 81 mg, atorvastatin 40 mg, possibility of complex migraine, started on Topamax 50 twice daily, EEG pending - Continue permissive hypertension for 24 to 48 hours Chronic: Hypertension Dyslipidemia DVT ppx: Subcu heparin Code status full code Anticipated discharge place: Pending clinical course Anticipated discharge time: Pending clinical course Objective - Vital Signs Vital signs: Vital Signs Temp 97.9 F 12/16/23 04:00 Pulse 59 L 12/16/23 08:00 Resp 18 12/16/23 08:00 BP 183/97 12/16/23 08:00 Pulse Ox 98 12/16/23 08:00 FiO2 Intake & Output 12/15/23 12/16/23 12/16/23 18:59 06:59 18:59 Intake Total 180 Balance 180 Weight 97.522 kg 97.522 kg Intake: Oral 180 Other: Voiding Method Toilet Toilet # Voids 1 1 - Labs CBC & Chem 7: 12/15/23 14:10 12/15/23 14:10 Labs: Abnormal Lab Results - Last 24 Hours (Table) 12/15/23 Range/Units 14:10 Glucose 127 H (74-99) mg/dL
--- NOTE | 2023-12-16 13:51 | P.PN ---
Subjective Progress Note Date: 12/16/23 I am following-up with patient. Yesterday patient had worsening of speech and with headache. Today he feels he is doing drastically better. He has minimal headache over the left anterior temporal. He has chronic neck pain and has numbness over the back of neck and right upper extremity. Otherwise doing well. Objective - Vital Signs Vital signs: Vital Signs Temp 97.9 F 12/16/23 04:00 Pulse 56 L 12/16/23 12:00 Resp 18 12/16/23 08:00 BP 173/98 12/16/23 12:00 Pulse Ox 98 12/16/23 12:00 FiO2 Intake & Output 12/15/23 12/16/23 12/16/23 18:59 06:59 18:59 Intake Total 180 Balance 180 Weight 97.522 kg 97.522 kg Intake: Oral 180 Other: Voiding Method Toilet Toilet # Voids 1 1 - Exam GENERAL: The patient is sitting in a recliner chair and is not in acute distress. NEUROLOGICAL: Higher mental function: The patient is awake, alert, oriented to self, place and time. Patient is following commands. No aphasia and no neglect. Cranial nerves: The pupils are round, equal and reactive to light and accommodation. Visual hall are full to confrontation throughout. Extraocular movement is intact no nystagmus is noted. Facial sensation is normal to touch throughout. The facial strength is normal throughout. Hearing is normal bilaterally to hand rub. Tongue is midline and moved [id number] without any difficulty. No dysarthria is noted. Shoulder shrug is normal bilaterally. Motor: The strength is 5 over 5 throughout. Normal tone and bulk. Cerebellum: Normal finger to nose heel to azevedo bilaterally. Sensation: Sensation is normal to touch throughout. Reflexes (right/left): 2+ throughout. Plantars are downgoing bilaterally. Some of the work-up during this ED visit consisted of: on initial presentation patient blood pressure is 204/95. Then repeat it was 199/100. CBC with differential, chemistry panel ESR 9, CRP <0.5 Vitamin B12: 575 CT of the head is reported as no acute bleed or mass effect. No significant abnormality seen.I personally reviewed the CT and I agree there is no acute subacute stroke. CT angiography of the head and neck is unremarkable in which there is no significant abnormality seen reported.I personally reviewed it and there is left ICA occlusion that's also reported on the prior images recently MRI Brain and Orbit w/ and w/o: Is reported as no significant white mater changes or abnormal enhancement. No significant change from prior MRI. - Labs CBC & Chem 7: 12/15/23 14:10 12/15/23 14:10 Labs: Abnormal Lab Results - Last 24 Hours (Table) 12/15/23 Range/Units 14:10 Glucose 127 H (74-99) mg/dL Assessment and Plan Assessment: this is a 58-year-old gentleman who presents because of headache over the anterior temporal/frontal as well as some speech difficulty. His blood pressure was 200/99 on presentation. She was here last week with similar presentation with also elevated blood pressure and images shows left vertebral artery occlusion at the skull base. Was felt the patient had recurrent TIA possibly in the left PICA distribution on recent visit. His recent MRI the brain shows some fluid surrounding the optic nerve bilaterally associate with papilledema. Cephalgia with expressive aphasia: unsure exactly etiology. Possible complicated migraine. Cannot rule out TIA. Cannot rule out due to accelerate HTN but doubt. ESR and CRP are normal and this is not giant cell vasculitis. MRI Brain and Orbit is negative for acute or subacute process. 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 Left vertebral artery occlusion at the skull base Chronic neck pain History of traumatic brain injury in 1982 Plan: I ordered MRI of the Cervical spine since has ongoing neck pain with numbness right upper extremity. Neck pain will not give aphasia. Pending EEG. I ordered a routine EEG since the patient continues to have repeated episodes to rule out any underlying form discharges or underlying seizure I started the patient on Topamax 50mg bid for headaches and notified the side- effects of medications. Ophthalmology is consulted for his recent MRI the brain revealing possible papilledema and this was relayed to ED physician. Pending limited 2-D echo He is resumed on his home dose ASA 81mg daily. His Brilinta 90mg bid is held for consideration of lumbar puncture especially with papilledema. Continue neuro check Cardiac monitoring Recommend PT, OT and WELDER APPRENTICE COMBINATION Will defer the rest of medical management to the primary team. Recommend Subq heparin or Lovenox for DVT prophylaxis. The plan is discussed with patient, his who is at bedside and primary team. Time with Patient: Less than 30
[2023-12-16 16:10] LABS: Chol/HDL Ratio 4.67 Ratio; LDL Cholesterol,Calculated 115.1 mg/dL (0.0-131.0); VLDL Calculation 17.68 mg/dL (5.00-40.00)
[2023-12-16 16:12] LABS: Glucose,Whole Blood 147 mg/dL (70-110)
--- NOTE | 2023-12-16 19:08 | CA ---
Transthoracic Echo Report Name: William Laguerre Age: 58 Gender: M : 1965 Exam Date: 12/16/2023 13:51 Exam Location: [facility] Ht (in): 68 Wt (lb): 215 Ordering Physician: Raqule La MD Attending/Referring Phys: [id number], Abhinav Heel Molder Ilene Babcock, RDCS Procedure CPT: Indications: limited. cva Cardiac Hx: Technical Quality: Fair Contrast 1: Agitated Saline Total Dose (mL): Contrast 2: Total Dose (mL): MEASUREMENTS (Male / Female) Normal Values FINDINGS Left Ventricle Right Ventricle Right Atrium Left Atrium No spontaneous echo contrast seen in the left atrium. No patent foramen ovale. No evidence for an atrial septal defect. Mitral Valve Aortic Valve Tricuspid Valve Pulmonic Valve Pericardium Aorta CONCLUSIONS Technically difficult study As above Previewed by: Dr. Dustin Robbins MD (Electronically Signed) Final Date: 16 December 2023 19:07
[2023-12-16 20:00] LABS: Glucose,Whole Blood 108 mg/dL (70-110)
[2023-12-16] MEDS: ATORVASTATIN 40 MG TAB PO SCH (22:16)
--- NOTE | 2023-12-16 22:41 | MR ---
MRI CERVICAL SPINE: CLINICAL HISTORY: Neck pain and numbness of right upper extremity TECHNIQUE: Multiplanar, multisequence imaging of the cervical spine is performed without IV contrast. COMPARISON: CTA neck earlier today FINDINGS: Sagittal images of the cervical spine show the craniocervical junction to appear within nor mal limits. The cervical and upper thoracic spinal cord is normal in course, caliber, and signal. Sl ight grade 1 retrolisthesis C6 on C7 redemonstrated. The vertebral body height are normal. Moderate disc space narrowing C6-C7 level redemonstrated. The bone marrow signal intensity is within normal l imits. Axial images at C2-C3 level shows uncovertebral facet degenerative change bilaterally causing moderat e to severe left and mild right-sided neural foraminal narrowing. Axial images at C3-C4 level show uncovertebral facet degenerative change causing [id number] enrique ateral neural foraminal narrowing. Axial images at C4-C5 level shows uncovertebral facet degenerative change bilaterally causing mild ri ght and moderate to severe left-sided neural foraminal narrowing. Axial images at C5-C6 level appear within normal limits. Axial images at C6-C7 level show spondylolisthesis with broad-based posterior disc protrusion mildly effacing the anterior thecal sac and causing [id number] bilateral neural foraminal narrowing. Axial images at C7-T1 level appear within normal limits. IMPRESSION: Multilevel degenerative changes in the cervical spine as detailed above.
--- NOTE | 2023-12-17 01:45 | EEG ---
ELECTROENCEPHALOGRAM REPORT CLINICAL HISTORY: This is a 58-year-old gentleman with recurrent headache and aphasia. The video EEG is obtained to evaluate for seizure epileptiform activity. RELEVANT MEDICATION: The patient is not on any antiepileptic drugs. EEG TYPE: This is a routine 21-channel EEG with video using the 10/20 electrode placement system. DESCRIPTION: Wakefulness is obtained. During awake state, the posterior-dominant rhythm consists of low voltage of 10 hertz activity that is well modulated and well sustained. There is no physiological stage 2 sleep architecture. There is no focal slowing. Interictal and ictal is none. ACTIVATION PROCEDURE: Photic stimulation did not evoke a posterior driving response. There is no abnormality during the photic stimulation. Hyperventilation is not performed. CLINICAL INTERPRETATION: This is a normal routine EEG. There is no focal slowing, epileptiform discharge, or seizure on the EEG. A normal routine EEG does not rule out any underlying epilepsy. Clinical correlation is recommended. ZACHARY / MILTON: [id number] /
[2023-12-17 06:25] LABS: Glucose,Whole Blood 115 mg/dL (70-110)
[2023-12-17 11:01] VITALS: RESP 16
[2023-12-17 11:31] LABS: Glucose,Whole Blood 99 mg/dL (70-110)
[2023-12-17] MEDS: amLODIPine 10 MG TAB PO SCH (12:37)
[2023-12-17 13:10] VITALS: BP 132/87; PULSE 54; TEMP 97.6
--- NOTE | 2023-12-17 14:24 | P.DS ---
Providers Date of admission: 12/15/23 19:25 Expected date of discharge: 12/17/23 Attending physician: Sruthi Aguero MD Consults: 12/15/23 19:24 Consult Physician Routine Consulting Provider: Telly Epstein Consult Reason/Comments: TIA, papilledema Do you want consulting provider notified?: Yes 12/16/23 06:44 Consult Physician Routine Consulting Provider: Justus Lopez Consult Reason/Comments: papilledema Do you want consulting provider notified?: Yes Primary care physician: Fuentes Rey [facility] Course: Discharge Diagnosis: Complicated migraine Strokelike symptoms Suspected TIA Hypertension Dyslipidemia Hospital Course: 58-year-old male with history of hypertension, dyslipidemia presented with strokelike symptoms. He claims that he was recently discharged from our facility with similar symptoms, was given a diagnosis of TIA, and was sent home on aspirin, Brilinta, statin, event monitor was placed. While in the ED, patient was hypertensive up to 204/95, rest of the vital signs were within normal limits. Laboratory workup unremarkable. EKG showed normal sinus rhythm with nonspecific ST-T wave changes. Chest x-ray unremarkable. Head CT did not show any acute process. Head and neck CTA did not show any acute process. Brain MRI no significant changes. Neurology consulted. EEG did not show any epileptiform discharges. Echocardiogram was limited, showed no patent foramina ovale. Cervical spine MRI showed multilevel degenerative changes in the cervical spine, moderate to severe left-sided neural foraminal narrowing and C4- 5. Concern for symptoms secondary to complex migraine. Started on Topamax by neurology. Patient being discharged home with aspirin, statin, Brilinta, follow-up closely with neurologist, outpatient LP if needed. Patient seen and examined at bedside. Vital signs reviewed and stable. General: Nontoxic, no distress, appears at stated age Derm: Warm, dry Head: Atraumatic, normocephalic, symmetric Eyes: EOMI, no lid lag, anicteric sclera Mouth: No lip lesion, mucus membranes moist Cardiovascular: S1S2 reg, no murmur Lungs: CTA bilateral, no rhonchi, no rales, no accessory muscle use Abdominal: Soft, nontender to palpation, no guarding, no appreciable organomegaly Ext: No gross muscle atrophy, no edema, no contractures Neuro: CN II-XI grossly intact, no focal neuro deficits Psych: Alert, oriented, appropriate affect A total of 35 minutes of time were spent preparing this complex discharge summary. Patient was discharged on 12/17/2023 at 1418. Patient Condition at Discharge: Stable Plan - Discharge Summary Discharge Rx Participant: Yes New Discharge Prescriptions: New Topiramate [Topamax] 50 mg PO BID #60 tab Continue amLODIPine [Norvasc] 10 mg PO DAILY Aspirin EC [Ecotrin Low Dose] 81 mg PO DAILY Ticagrelor [Brilinta] 90 mg PO BID #60 tab Atorvastatin [Lipitor] 40 mg PO HS #30 tab Ascorbic Acid [Vitamin C] 1,000 mg PO DAILY Cholecalciferol (Vitamin D3) [Vitamin D3 (50 Mcg = 2000 Iu)] 50 mcg PO DAILY Cetirizine HCl [Zyrtec] 10 mg PO HS Melatonin 10 mg PO HS Discharge Medication List Ascorbic Acid [Vitamin C] 1,000 mg PO DAILY 12/09/23 [History] Aspirin EC [Ecotrin Low Dose] 81 mg PO DAILY 12/09/23 [History] Cholecalciferol (Vitamin D3) [Vitamin D3 (50 Mcg = 2000 Iu)] 50 mcg PO DAILY 12/09/23 [History] amLODIPine [Norvasc] 10 mg PO DAILY 12/09/23 [History] Atorvastatin [Lipitor] 40 mg PO HS #30 tab 12/11/23 [Rx] Ticagrelor [Brilinta] 90 mg PO BID #60 tab 12/11/23 [Rx] Cetirizine HCl [Zyrtec] 10 mg PO HS 12/15/23 [History] Melatonin 10 mg PO HS 12/15/23 [History] Topiramate [Topamax] 50 mg PO BID #60 tab 12/17/23 [Rx] Follow up Appointment(s)/Referral(s): Fuentes Ruby MD [Primary Care Provider] - 1-2 days Patient Instructions/Handouts: Migraine Headache (GEN) Activity/Diet/Wound Care/Special Instructions: Please see your PCP, neurology for further work up. Discharge/Stand Alone Forms: Work/School Release / Restrict Discharge Disposition: HOME SELF-CARE
--- NOTE | 2023-12-17 16:16 | P.PN ---
Subjective Progress Note Date: 12/17/23 I am following-up with patient and he feels about the same. Regarding his neck pain he follows-up with Dr. Aguirre. Prior to this presentation he did not have numbness of right upper extremity. Denies any new neurological issues. Objective - Vital Signs Vital signs: Vital Signs Temp 97.6 F 12/17/23 12:35 Pulse 54 L 12/17/23 12:35 Resp 16 12/17/23 12:35 BP 132/87 12/17/23 12:35 Pulse Ox 98 12/17/23 12:35 FiO2 Intake & Output 12/16/23 12/17/23 12/17/23 18:59 06:59 18:59 Intake Total 360 360 Balance 360 360 Intake: Oral 360 360 Other: Voiding Method Toilet Toilet Toilet # Voids 1 2 - Exam GENERAL: The patient is sitting in a recliner chair and is not in acute distress. NEUROLOGICAL: Higher mental function: The patient is awake, alert, oriented to self, place and time. Patient is following commands. No aphasia and no neglect. Cranial nerves: The pupils are round, equal and reactive to light and accommodation. Visual hall are full to confrontation throughout. Extraocular movement is intact no nystagmus is noted. Facial sensation is normal to touch throughout. The facial strength is normal throughout. Hearing is normal bilaterally to hand rub. Tongue is midline and moved [id number] without any difficulty. No dysarthria is noted. Shoulder shrug is normal bilaterally. Motor: The strength is 5 over 5 throughout. Normal tone and bulk. Cerebellum: Normal finger to nose heel to [place] bilaterally. Sensation: Sensation is normal to touch throughout. Reflexes (right/left): 2+ throughout. Plantars are downgoing bilaterally. Some of the work-up during this ED visit consisted of: on initial presentation patient blood pressure is 204/95. Then repeat it was 199/100. CBC with differential, chemistry panel ESR 9, CRP <0.5 Vitamin B12: 575 Lipid panel: TG 88, cholestrol 169, LDL 115, HDL 36 CT of the head is reported as no acute bleed or mass effect. No significant abnormality seen.I personally reviewed the CT and I agree there is no acute subacute stroke. CT angiography of the head and neck is unremarkable in which there is no significant abnormality seen reported.I personally reviewed it and there is left ICA occlusion that's also reported on the prior images recently MRI Brain and Orbit w/ and w/o: Is reported as no significant white mater changes or abnormal enhancement. No significant change from prior MRI. Limited 2D echo: Technically difficulty study. No PFO. Routine EEG: Normal. MRI Cervical spine: Multilevel degenerative changes in the cervical spine as detailed above. - Labs CBC & Chem 7: 12/15/23 14:10 12/15/23 14:10 Labs: Abnormal Lab Results - Last 24 Hours (Table) 12/16/23 12/16/23 12/17/23 Range/Units 09:29 16:10 06:23 POC Glucose (mg/dL) 147 H 115 H (70-110) mg/dL HDL Cholesterol 36.20 L (40.00-60.00) mg/dL Assessment and Plan Assessment: this is a 58-year-old gentleman who presents because of headache over the anterior temporal/frontal as well as some speech difficulty. His blood pressure was 200/99 on presentation. She was here last week with similar presentation with also elevated blood pressure and images shows left vertebral artery occlusion at the skull base. Was felt the patient had recurrent TIA possibly in the left PICA distribution on recent visit. His recent MRI the brain shows some fluid surrounding the optic nerve bilaterally associate with papilledema. Cephalgia with expressive aphasia: unsure exactly etiology. Possible complicated migraine. Cannot rule out TIA. Cannot rule out due to accelerate HTN but doubt. ESR and CRP are normal and this is not giant cell vasculitis. MRI Brain and Orbit is negative for acute or subacute process. 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 He follows-up with Dr. Aguirre and will have follow-up as outpatient. Consider EMG with NCS as outpatient to rule out any cervical radiculopathy. I started the patient on Topamax 50mg bid on 12/16/23 for headaches and notified the side-effects of medications. In a week can go up to 50mg 2 tab bid if continues to have headache. Ophthalmology is consulted for his recent MRI the brain revealing possible papilledema but was notified refused to be seen as inpatient. It seems he was evaluated by Senior Materials Scientist 2 weeks ago and no papilledema. Recommend re- evaluation as outpatient to confirm no papilledema. He is resumed on his home dose ASA 81mg daily. His Brilinta 90mg bid is held for consideration of lumbar puncture especially with ?papilledema. He opted out of Lumbar puncture as inpatient and will consider it as outpatient to be c oordinated by his PCP or neurologist. Therefore, will resume Brilinta. Patient has an appointment with neurology team over [facility] in 01/2024. was notified to call to assess if any sooner appointment to check if any cancellations. Continue neuro check Cardiac monitoring Recommend PT, OT and STOCK RANCH SUPERVISOR Will defer the rest of medical management to the primary team. Recommend Subq heparin or Lovenox for DVT prophylaxis. The plan is discussed with patient, his who is at bedside and primary team. Time with Patient: Less than 30
== END 2023-12-17 16:14 | disposition home or self-care (01) | DRG 103 ==
LOC: EC 12:55 → 3SCARD 19:25
PROVIDERS: ADMIT Internal Medicine; ATTEND Internal Medicine
DX: G43.109 Migraine with aura, not intractable, without status migrainosus (principal); H47.10 Unspecified papilledema; R47.01 Aphasia; G45.9 Transient cerebral ischemic attack, unspecified; I65.02 Occlusion and stenosis of left vertebral artery; I10 Essential (primary) hypertension; I65.22 Occlusion and stenosis of left carotid artery; E78.5 Hyperlipidemia, unspecified; G89.29 Other chronic pain; M47.812 Spondylosis without myelopathy or radiculopathy, cervical region; R13.10 Dysphagia, unspecified; R27.0 Ataxia, unspecified; R47.81 Slurred speech; Z79.02 Long term (current) use of antithrombotics/antiplatelets; Z79.82 Long term (current) use of aspirin; Z79.899 Other long term (current) drug therapy; Z86.73 Personal history of transient ischemic attack (TIA), and cerebral infarction without residual deficits
CPT/HCPCS: 36415; 70450; 70496; 70498; 70543; 70553; 71046; 72141; 80053; 80061; 82550; 82607; 84484; 85025; 85610; 85652; 85730; 86140; 93005; 93308; 94760; 95816; 99285

== ENCOUNTER → 2024-02-09 | Outpatient (CLI) | payer BC ==
--- NOTE | 2024-02-09 10:53 | MR ---
EXAMINATION TYPE: MR brain wo con DATE OF EXAM: 02/09/2024 9:37 AM CLINICAL INDICATION:Male, 58 years old with history of I62.02 occlusion, Abnormal studies, occlusion COMPARISON: MR Angio same day. 12/16/2023 TECHNIQUE: Multi planar, multi sequence imaging was performed through the brain including: T1, T2, In version recovery, Diffusion weighted imaging, and gradient echo imaging. No gadolinium was given. FINDINGS: Mild cerebral atrophy with proportional dilation of ventricular system. Midline structures show no ab normality. Diffusion-weighted imaging shows no evidence of restricted diffusion. The susceptibility w eighted images do not reveal any evidence for micro-hemorrhage. The bone marrow signal is within normal limits. Paranasal sinuses and mastoid air cells: No significant paranasal sinus disease. Visualized orbits: Orbital contents are intact. Please see dedicated MRA brain for findings regarding vasculature. IMPRESSION: No evidence of intracranial mass or acute/subacute infarct.
--- NOTE | 2024-02-09 10:57 | MR ---
EXAMINATION TYPE: MR angio head wo con DATE OF EXAM: 02/09/2024 9:48 AM CLINICAL INDICATION:Male, 58 years old with history of I65.02 OCCLUSION AND STENOSIS OF LEFT VERTEBRA L AR, Abnormal studies, occlusion COMPARISON: 12/15/2023, 12/09/2023 Technical: 3-D [id number] Axial with MIP reconstruction created on a separate workstation.. IV Contrast: None Findings: Vertebral arteries: The vertebral arteries are patent. Vertebral arteries are: Occluded left intracranial vertebral artery with right dominant vertebral art bryan. The left vertebral artery now appears to terminate as a posterior inferior cerebellar artery. Basilar artery: The basilar artery is intact. The basilar artery bifurcation is normal. Internal Carotid arteries: The cervical, petrous, cavernous and supraclinoid segments are normal. MK: Patent with no evidence of aneurysm. ACOM: Present without evidence of aneurysm. MCA: Patent with no evidence of aneurysm. FOREIGN SERVICE TEACHER: Patent with no evidence of aneurysm. PCOM: Hypoplastic bilaterally. 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 The left vertebral artery now michaela ears to terminate as the posterior inferior cerebellar artery.
== END | disposition home or self-care (01) ==
LOC: RADMRIMAIN 09:01
PROVIDERS: ATTEND Student in an Organized Health Care Education/Training Program
DX: I65.02 Occlusion and stenosis of left vertebral artery (principal)
CPT/HCPCS: 70544; 70551

== ENCOUNTER → 2024-09-07 | Outpatient (CLI) | payer BC ==
--- NOTE | 2024-09-07 17:56 | CA ---
Exercise Stress Test Report Name: William Laguerre Exam Date: 09/07/2024 08:57 Exam Location: [place] Stress Ht (in): 68 Wt (lb): 220 BSA: 2.13 Ordering Phys: Fuentes Ruby MD Referring Phys: Talha Madrigal Technologist: Rashawn Payan Age: 58 Gender: M : 1965 Procedure CPT: Indications: R06.00 DYSPNEA, UNSPECIFIED ICD-10 Codes: Patient History: Shortness of breath, hypertension, hyperlipidemia and history of CVA. Medications: Meds past 24 hrs: Pretest Chest Pain: STRESS TEST Jose Protocol Exercise Duration (min:sec): 10:[address] Depressions (mm): 0 Angina Score: 0 Dunn Score: 10.8 Resting HR (bpm): 54 Peak HR (bpm): 143 Resting BP (mmHg): 134 / 79 Peak BP (mmHg): 202 / 72 MPHR: 163 Target HR: 139 % MPHR: 88 METS: 12.1 Total Dose: Peak Dose: Atropine: Double Product: 23624 BP Response: Stress Termination: TARGET HR REACHED/MAX EXERTION Stress Symptoms: NO SYMPTOMS Stress Summary: The patient's target heart rate was achieved, The hemodynamic response to exercise was normal ECG ANALYSIS Resting ECG: Sinus rhythm. Normal conduction. No arrhythmias. Normal repolarization. Stress ECG: No ECG evidence of ischemia with exercise. Atrial premature contraction. CONCLUSIONS Patient falls into low-risk group (DTS >= +5). This associates the patient with an annual CV mortality <= 0.5%. Good exercise tolerance Normal electrocardiographic response to exercise with no evidence of exercise induced ischemia Dr. Carol Lilly MD (Electronically Signed) Final Date: 07 September 2024 17:55
== END | disposition home or self-care (01) ==
LOC: RADNMMAIN 08:22
PROVIDERS: ATTEND Family Medicine
DX: R06.00 Dyspnea, unspecified (principal); E78.5 Hyperlipidemia, unspecified; Z86.73 Personal history of transient ischemic attack (TIA), and cerebral infarction without residual deficits; I10 Essential (primary) hypertension
CPT/HCPCS: 93017

== ENCOUNTER → 2024-12-21 | Outpatient (CLI) | payer BC ==
[2024-12-21 10:23] LABS: Basophils # (A) 0.05 X 10*3/uL (0.00-0.10); Basophils % (A) 0.9 %; Eosinophils # (A) 0.18 X 10*3/uL (0.04-0.35); Eosinophils % (A) 3.2 %; HCT 44.3 % (39.6-50.0); HGB 15.4 g/dL (13.0-17.0); Lymphocytes # (A) 1.88 X 10*3/uL (0.90-5.00); Lymphocytes % (A) 33.6 %; MCH 30.4 pg (27.0-32.0); MCHC 34.8 g/dL (32.0-37.0); MCV 87.4 FL (80.0-97.0); Mean Platelet Volume 10.9 FL (9.5-12.2); Monocytes # (A) 0.59 X 10*3/uL (0.20-1.00); Monocytes % (A) 10.5 %; NRBC Per 100 WBC 0 X 10*3/uL (0.00-0.01); Neutrophils # (A) 2.89 X 10*3/uL (1.80-7.70); Neutrophils % (A) 51.6 %; Platelet Count 183 X 10*3/uL (140-440); RBC 5.07 X 10*6/uL (4.40-5.60); RDW 12.5 % (11.5-14.5)
[2024-12-21 10:56] LABS: Chol/HDL Ratio 2.77 Ratio; VLDL Calculation 12.34 mg/dL (5.00-40.00)
[2024-12-21 10:57] LABS: ALT 41 U/L (10-49); AST 28 U/L (14-35); Albumin 4.3 g/dL (3.8-4.9); Albumin/Globulin Ratio 2.26 Ratio (1.60-3.17); Alkaline Phosphatase 64 U/L (41-126); Blood Urea Nitrogen 18.1 mg/dL (9.0-27.0); Calcium 9.3 mg/dL (8.7-10.3); Carbon Dioxide 23.5 mmol/L (21.6-31.8); Chloride 104 mmol/L (96-109); Globulin 1.9 g/dL (1.6-3.3); Glucose 106 mg/dL (70-110); LDL Cholesterol,Calculated 46.5 mg/dL (0.0-131.0); Potassium 4.5 mmol/L (3.5-5.5); Prostate Specific Antigen 3.09 ng/mL (0.000-3.500); Sodium 138 mmol/L (135-145); T4, Free (Free Thyroxine) 1.18 ng/dL (0.80-1.80); Total Bilirubin 0.5 mg/dL (0.3-1.2); Total Protein 6.2 g/dL (6.2-8.2)
[2024-12-21 11:04] LABS: Appearance,Urine Clear (Clear); Bilirubin,Urine Negative (Negative); Blood,Urine Negative (Negative); Color,Urine Yellow (Yellow); Ketones,Urine Negative (Negative); Nitrite,Urine Negative (Negative); PH, Urine 6.5; Specific Gravity,Urine 1.009 (1.001-1.030); Urobilinogen,Urine 0.2 E.U./DL
[2024-12-21 11:11] LABS: Bacteria,Urine None Seen (None Seen)
== END | disposition home or self-care (01) ==
LOC: LABWHC1 07:20
PROVIDERS: ATTEND Physician Assistant
DX: Z12.5 Encounter for screening for malignant neoplasm of prostate (principal); I10 Essential (primary) hypertension; E78.5 Hyperlipidemia, unspecified
CPT/HCPCS: 36415; 80053; 80061; 81001; 82306; 83036; 84153; 84439; 84443; 85025